=== PATIENT | female | born 1960 | race Caucasian/White ===

== ENCOUNTER 2017-05-13 01:25 | Emergency (ER) | payer MEDICARE, MEDICAID ==
--- NOTE | 2017-05-13 03:32 | ER Document Report ---
ED General - General Chief Complaint: Breathing Difficulty Stated Complaint: DIFFICULTY BREATHING Time Seen by Provider: 05/13/17 03:01 Notes: 57 years old female with a history of COPD, ran out of her Vicodin, and came today with a left sided chest pain between the shoulder blade. Denies any difficulty in using breathing wheezing, denies any precordial pain denies any left arm numbness tingling sensation. Denies any other constitutional symptoms. TRAVEL OUTSIDE OF THE [place] IN LAST 30 DAYS: No - Related Data Allergies/Adverse Reactions: tramadol HCl [From Ultram] Allergy (Mild, Verified 01/26/17 10:28) aspirin Allergy (Verified 03/18/16 18:54) diclofenac sodium [From Voltaren] Allergy (Verified 01/26/17 10:28) ketorolac [From Toradol] Allergy (Verified 03/19/16 03:39) penicillin G [Penicillin G] Allergy (Verified 01/26/17 10:28) Penicillins Allergy (Verified 03/18/16 18:54) Past Medical History - Social History Smoking Status: Current Every Day Smoker Chew tobacco use (# tins/day): No Frequency of alcohol use: None Drug Abuse: None Family History: CAD, COPD, Hypertension Patient has suicidal ideation: No Patient has homicidal ideation: No - Past Medical History Cardiac Medical History: Reports: Hx Congestive Heart Failure, Hx Hypertension Pulmonary Medical History: Reports: Hx COPD Neurological Medical History: Denies: Hx Seizures Renal/ Medical History: Reports: Hx Ovarian Cysts. Denies: Hx Peritoneal Dialysis GI Medical History: Reports: Hx Gastroesophageal Reflux Disease Musculoskeltal Medical History: Reports Hx Arthritis - RA Psychiatric Medical History: Reports: Hx Anxiety, Hx Bipolar Disorder, Hx Depression Past Surgical History: Reports: Hx Appendectomy, Hx Cholecystectomy, Hx Hysterectomy - Immunizations Immunizations up to date: Yes Hx Diphtheria, Pertussis, Tetanus Vaccination: Yes Review of Systems - Review of Systems Notes: REVIEW OF SYSTEMS: CONSTITUTIONAL : Denies fever, chills, or sweats. Denies recent illness. EENT: Denies eye, ear, throat, or mouth pain or symptoms. Denies nasal or sinus congestion or discharge. Denies throat, tongue, or mouth swelling or difficulty swallowing. CARDIOVASCULAR: Denies chest pain. Denies palpitations or racing or irregular heart beat. Denies ankle edema. RESPIRATORY: Denies cough, cold, or chest congestion. Denies shortness of breath, difficulty breathing, or wheezing. GASTROINTESTINAL: Denies abdominal pain or distention. Denies nausea, vomiting , or diarrhea. Denies blood in vomitus, stools, or per rectum. Denies black, tarry stools. Denies constipation. GENITOURINARY: Denies difficulty urinating, painful urination, burning, frequency, blood in urine, or discharge. FEMALE GENITOURINARY: Denies vaginal bleeding, heavy or abnormal periods, irregular periods. Denies vaginal discharge or odor. MUSCULOSKELETAL: Denies back or neck pain or stiffness. Denies joint pain or swelling. SKIN: Denies rash, lesions or sores. HEMATOLOGIC : Denies easy bruising or bleeding. LYMPHATIC: Denies swollen, enlarged glands. NEUROLOGICAL: Denies confusion or altered mental status. Denies passing out or loss of consciousness. Denies dizziness or lightheadedness. Denies headache. Denies weakness or paralysis or loss of use of either side. Denies problems with gait or speech. Denies sensory loss, numbness, or tingling. Denies seizures. PSYCHIATRIC: Denies anxiety or stress. Denies depression, suicidal ideation, or homicidal ideation. ALL OTHER SYSTEMS REVIEWED AND NEGATIVE. PHYSICAL EXAMINATION: GENERAL: Well-appearing, well-nourished and in no acute distress. HEAD: Atraumatic, normocephalic. EYES: Pupils equal round and reactive to light, extraocular movements intact, conjunctiva are normal. ENT: Nares patent, oropharynx clear without exudates. Moist mucous membranes. NECK: Normal range of motion, supple without lymphadenopathy LUNGS: Breath sounds clear to auscultation bilaterally and equal. No wheezes rales or rhonchi. Chest wall sharp tenderness noted along the trapezoid muscle-close to the insertion to the left scapula. HEART: Regular rate and rhythm without murmurs ABDOMEN: Soft, nontender, nondistended abdomen. No guarding, no rebound. No masses appreciated. Female : deferred Musculoskeletal: Normal range of motion, no pitting or edema. No cyanosis. NEUROLOGICAL: Cranial nerves grossly intact. Normal speech, normal gait. Normal sensory, motor exams PSYCH: Normal mood, normal affect. SKIN: Warm, Dry, normal turgor, no rashes or lesions noted. Dictation was performed using Dragon voice recognition software Physical Exam - Vital signs Vitals: Temp Pulse Resp BP Pulse Ox 98.3 F 70 18 117/59 L 94 05/13/17 01:44 05/13/17 01:44 05/13/17 01:44 05/13/17 01:44 05/13/17 01:44 Course - Re-evaluation Re-evalutation: 05/13/17 06:18 Patient's pulse oximeter drops while sleeping between 88 and 90, but when she is awake this over 93. - Vital Signs Vital signs: Temp Pulse Resp BP Pulse Ox 98.3 F 70 18 117/59 L 94 05/13/17 01:44 05/13/17 01:44 05/13/17 01:44 05/13/17 01:44 05/13/17 01:44 - Diagnostic Test Radiology reviewed: Reports reviewed - Normal chest x-ray Discharge - Discharge Clinical Impression: Chest wall pain COPD (chronic obstructive pulmonary disease) Qualifiers: COPD type: emphysema Emphysema type: unspecified Qualified Code(s): J43.9 - Emphysema, unspecified Condition: Fair Disposition: HOME, SELF-CARE Instructions: Chest Wall Pain ([facility]) Prescriptions: Hydrocodone/Acetaminophen [[place] 5-325 mg Tablet] 1 tab PO BID PRN #7 tablet PRN Reason: Referrals: KANNAN FRITZ MD [Primary Care Provider] - Follow up as needed
[2017-05-13] MEDS ORDERED: IPRATROPIUM/ALBUTEROL 0.5-2.5 MG/3 ML AMPUL NEB ONE (03:34)
[2017-05-13] MEDS ORDERED: HYDROCODONE/ACETAMINOPHEN 5-325 MG TABLET PO ONE (04:18)
--- NOTE | 2017-05-13 04:38 | RADIOLOGY REPORT (SQ) ---
EXAM DESCRIPTION: CHEST PA/LAT CLINICAL HISTORY: 57 years, Female, chest COMPARISON: 10.26.16 NUMBER OF VIEWS:2 FINDINGS: Mild emphysematous hyperinflation, clear parenchyma, normal cardiac silhouette, and right upper abdominal clips. Intact bony thorax. Stable. IMPRESSION: No acute cardiopulmonary findings. 2011 [employer]- All Rights Reserved
[2017-05-13 06:47] VITALS: BP 106/72
== END 2017-05-13 06:47 | disposition home or self-care (01) ==
LOC: ER 01:25
DX: J43.9 Emphysema, unspecified (principal); R07.89 Other chest pain; I10 Essential (primary) hypertension; F17.200 Nicotine dependence, unspecified, uncomplicated; Z88.5 Allergy status to narcotic agent; Z88.6 Allergy status to analgesic agent; Z88.0 Allergy status to penicillin; Z82.5 Family history of asthma and other chronic lower respiratory diseases
CPT/HCPCS: 94640; 99285; 71020; A9270 ×2; J7620

== ENCOUNTER 2017-08-22 15:44 | Emergency (ER) | payer MEDICARE, MEDICAID ==
--- NOTE | 2017-08-22 16:24 | ER Document Report ---
ED Medical Screen (RME) - General Chief Complaint: Possible Kidney Stone Stated Complaint: FLANK PAIN Time Seen by Provider: 08/22/17 16:16 Notes: 57-year-old female patient with past medical history of kidney stones, hypertension, complains of right-sided flank pain for 3 days with nausea without vomiting, fever and chills. Temperature to 100.[address] scan for stones was done on 03/18/2016 showed a very tiny right ureteral stone with mild hydro-. I have greeted and performed a rapid initial assessment of this patient. A comprehensive ED assessment and evaluation of the patient, analysis of test results and completion of the medical decision making process will be conducted by additional ED providers. TRAVEL OUTSIDE OF THE [place] IN LAST 30 DAYS: No - Related Data Allergies/Adverse Reactions: tramadol HCl [From Ultram] Allergy (Mild, Verified 08/22/17 15:45) aspirin Allergy (Verified 08/22/17 15:45) diclofenac sodium [From Voltaren] Allergy (Verified 08/22/17 15:45) ketorolac [From Toradol] Allergy (Verified 08/22/17 15:45) penicillin G [Penicillin G] Allergy (Verified 08/22/17 15:45) Penicillins Allergy (Verified 08/22/17 15:45) Past Medical History - Social History Chew tobacco use (# tins/day): No Frequency of alcohol use: None Drug Abuse: None - Past Medical History Cardiac Medical History: Reports: Hx Congestive Heart Failure, Hx Hypertension Pulmonary Medical History: Reports: Hx COPD Neurological Medical History: Denies: Hx Seizures Renal/ Medical History: Reports: Hx Ovarian Cysts. Denies: Hx Peritoneal Dialysis GI Medical History: Reports: Hx Gastroesophageal Reflux Disease Musculoskeltal Medical History: Reports Hx Arthritis - RA Psychiatric Medical History: Reports: Hx Anxiety, Hx Bipolar Disorder, Hx Depression Past Surgical History: Reports: Hx Appendectomy, Hx Cholecystectomy, Hx Hysterectomy - Immunizations Immunizations up to date: Yes Hx Diphtheria, Pertussis, Tetanus Vaccination: Yes Physical Exam - Vital signs Vitals: Temp Pulse Resp BP Pulse Ox 97.8 F 64 14 113/67 90 L 08/22/17 15:54 08/22/17 15:54 08/22/17 15:54 08/22/17 15:54 08/22/17 15:54 Course - Vital Signs Vital signs: Temp Pulse Resp BP Pulse Ox 97.8 F 64 14 113/67 90 L 08/22/17 15:54 08/22/17 15:54 08/22/17 15:54 08/22/17 15:54 08/22/17 15:54
[2017-08-22 16:56] LABS: APPEARANCE,URINE CLEAR; BILIRUBIN,URINE NEGATIVE (NEGATIVE); COLOR,URINE STRAW; GLUCOSE, URINE NEGATIVE (NEGATIVE); KETONES,URINE NEGATIVE (NEGATIVE); URINE SPECIFIC GRAVITY 1.012
[2017-08-22 16:57] LABS: LEUKOCYTE ESTERASE,URINE NEGATIVE (NEGATIVE); NITRITE,URINE NEGATIVE (NEGATIVE); PROTEIN,URINE NEGATIVE (NEGATIVE); UROBILINOGEN,URINE NEGATIVE mg/dL (<2.0)
[2017-08-22] MEDS ORDERED: OXYCODONE-ACETAMINOPHEN 5-325 MG TABLET PO ONE (17:23)
--- NOTE | 2017-08-22 18:00 | ER Document Report ---
ED General - General Chief Complaint: Possible Kidney Stone Stated Complaint: FLANK PAIN Time Seen by Provider: 08/22/17 16:16 Mode of Arrival: Ambulatory Information source: Patient Notes: 57-year-old female history of appendectomy to previous kidney stones presents with complaint of right flank pain of 3 day duration. Patient denies any fevers or chills admits nausea vomiting, patient notes the pain has worsened in the right lower quadrant and feels a stone stuck TRAVEL OUTSIDE OF THE [place] IN LAST 30 DAYS: No - HPI Onset: Other Onset/Duration: Persistent Quality of pain: Sharp Severity: Mild Pain Level: 1 Associated symptoms: Nausea, Vomiting, Other Exacerbated by: Denies Relieved by: Denies Similar symptoms previously: Yes Recently seen / treated by doctor: No - Related Data Allergies/Adverse Reactions: tramadol HCl [From Ultram] Allergy (Mild, Verified 08/22/17 15:45) aspirin Allergy (Verified 08/22/17 15:45) diclofenac sodium [From Voltaren] Allergy (Verified 08/22/17 15:45) ketorolac [From Toradol] Allergy (Verified 08/22/17 15:45) penicillin G [Penicillin G] Allergy (Verified 08/22/17 15:45) Penicillins Allergy (Verified 08/22/17 15:45) Past Medical History - Social History Smoking Status: Current Every Day Smoker Cigarette use (# per day): Yes Chew tobacco use (# tins/day): No Smoking Education Provided: No Frequency of alcohol use: None Drug Abuse: None Family History: CAD, COPD, Hypertension Patient has suicidal ideation: No Patient has homicidal ideation: No - Past Medical History Cardiac Medical History: Reports: Hx Congestive Heart Failure, Hx Hypertension Pulmonary Medical History: Reports: Hx COPD Neurological Medical History: Denies: Hx Seizures Renal/ Medical History: Reports: Hx Ovarian Cysts. Denies: Hx Peritoneal Dialysis GI Medical History: Reports: Hx Gastroesophageal Reflux Disease Musculoskeltal Medical History: Reports Hx Arthritis - RA Psychiatric Medical History: Reports: Hx Anxiety, Hx Bipolar Disorder, Hx Depression Past Surgical History: Reports: Hx Appendectomy, Hx Cholecystectomy, Hx Hysterectomy - Immunizations Immunizations up to date: Yes Hx Diphtheria, Pertussis, Tetanus Vaccination: Yes Review of Systems - Review of Systems Notes: REVIEW OF SYSTEMS: CONSTITUTIONAL : Denies fever, chills, or sweats. Denies recent illness. EENT: Denies eye, ear, throat, or mouth pain or symptoms. Denies nasal or sinus congestion or discharge. Denies throat, tongue, or mouth swelling or difficulty swallowing. CARDIOVASCULAR: Denies chest pain. Denies palpitations or racing or irregular heart beat. Denies ankle edema. RESPIRATORY: Denies cough, cold, or chest congestion. Denies shortness of breath, difficulty breathing, or wheezing. GASTROINTESTINAL: Admits to right flank pain right lower quadrant abdominal pain nausea vomiting GENITOURINARY: Denies difficulty urinating, painful urination, burning, frequency, blood in urine, or discharge. FEMALE GENITOURINARY: Denies vaginal bleeding, heavy or abnormal periods, irregular periods. Denies vaginal discharge or odor. MUSCULOSKELETAL: Denies back or neck pain or stiffness. Denies joint pain or swelling. SKIN: Denies rash, lesions or sores. HEMATOLOGIC : Denies easy bruising or bleeding. LYMPHATIC: Denies swollen, enlarged glands. NEUROLOGICAL: Denies confusion or altered mental status. Denies passing out or loss of consciousness. Denies dizziness or lightheadedness. Denies headache. Denies weakness or paralysis or loss of use of either side. Denies problems with gait or speech. Denies sensory loss, numbness, or tingling. Denies seizures. PSYCHIATRIC: Denies anxiety or stress. Denies depression, suicidal ideation, or homicidal ideation. ALL OTHER SYSTEMS REVIEWED AND NEGATIVE. PHYSICAL EXAMINATION: GENERAL: Well-appearing, well-nourished and in no acute distress. HEAD: Atraumatic, normocephalic. EYES: Pupils equal round and reactive to light, extraocular movements intact, conjunctiva are normal. ENT: Nares patent, oropharynx clear without exudates. Moist mucous membranes. NECK: Normal range of motion, supple without lymphadenopathy LUNGS: Breath sounds clear to auscultation bilaterally and equal. No wheezes rales or rhonchi. HEART: Regular rate and rhythm without murmurs ABDOMEN: Soft, minimally tender right lower quadrant no rebound no guarding Female : deferred Musculoskeletal: Normal range of motion, no pitting or edema. No cyanosis. NEUROLOGICAL: Cranial nerves grossly intact. Normal speech, normal gait. Normal sensory, motor exams PSYCH: Normal mood, normal affect. SKIN: Warm, Dry, normal turgor, no rashes or lesions noted. Dictation was performed using Dragon voice recognition software Physical Exam - Vital signs Vitals: Temp Pulse Resp BP Pulse Ox 97.8 F 64 14 113/67 90 L 08/22/17 15:54 08/22/17 15:54 08/22/17 15:54 08/22/17 15:54 08/22/17 15:54 Course - Re-evaluation Re-evalutation: 08/22/17 17:59 Patient's presentation is most consistent with a kidney stone urinalysis notes no infection small blood was noted 08/22/17 18:00 08/22/17 18:40 CT noted no significant abnormality, patient will be treated for pains otherwise stable well-appearing of time of discharge Patient's urinalysis did note blood otherwise looks well After performing a Medical Screening Examination, I estimate there is LOW risk for ACUTE APPENDICITIS, BOWEL OBSTRUCTION, ACUTE CHOLECYSTITIS, PERFORATED DIVERTICULITIS, INCARCERATED HERNIA, PANCREATITIS, PELVIC INFLAMMATORY DISEASE, PERFORATED ULCER, ECTOPIC , or TUBO-OVARIAN ABSCESS, thus I consider the discharge disposition reasonable. Also, there is no evidence or peritonitis , sepsis, or toxicity. I have reevaluated this patient multiple times and no significant life threatening changes are noted. The patient and I have discussed the diagnosis and risks, and we agree with discharging home with close follow-up with the understanding that symptoms and presentations can change. We also discussed returning to the Emergency Department immediately if new or worsening symptoms occur. We have discussed the symptoms which are most concerning (e.g., bloody stool, fever, changing or worsening pain, vomiting) that necessitate immediate return. - Vital Signs Vital signs: Temp Pulse Resp BP Pulse Ox 97.8 F 64 14 113/67 90 L 08/22/17 15:54 08/22/17 15:54 08/22/17 15:54 08/22/17 15:54 08/22/17 15:54 - Laboratory Laboratory results interpreted by me: 08/22/17 16:10 Urine Blood SMALL H - Diagnostic Test Radiology reviewed: Image reviewed - no acute abnormality , report given to patient, Reports reviewed Discharge - Discharge Clinical Impression: Abdominal pain Qualifiers: Abdominal location: right lower quadrant Qualified Code(s): R10.31 - Right lower quadrant pain Hematuria Qualifiers: Hematuria type: unspecified type Qualified Code(s): R31.9 - Hematuria, unspecified Condition: Stable Disposition: HOME, SELF-CARE Instructions: Abdominal Pain ([facility]) Prescriptions: Hydrocodone/Acetaminophen [Shushan 5-325 mg Tablet] 1 tab PO Q6 #6 tablet Referrals: DEJA FERRO PA [Primary Care Provider] - Follow up as needed
--- NOTE | 2017-08-22 18:16 | RADIOLOGY REPORT (SQ) ---
EXAM DESCRIPTION: CT LTD RENAL STONE PROTOCOL ON COMPLETED DATE/TIME: 08/22/2017 6:06 pm REASON FOR STUDY: kidney stone , flank pain hematuria COMPARISON: 03/18/2016. TECHNIQUE: CT scan of the abdomen and pelvis performed without intravenous or oral contrast. Images reviewed with lung, soft tissue, and bone windows. Reconstructed coronal and sagittal MPR images revi ewed. All images stored on PACS. All CT scanners at this facility use dose modulation, iterative reconstruction, and/or weight based d osing when appropriate to reduce radiation dose to as low as reasonably achievable (ALARA). [facility]: Dose Right [facility]: CareDose [facility]: Dose Right [facility]: Teradose 4D [facility]: [employer] RADIATION DOSE: mGy. LIMITATIONS: None. FINDINGS: LOWER CHEST: No significant findings. No nodules or infiltrates. NON-CONTRASTED LIVER, SPLEEN, ADRENALS: Evaluation limited by lack of IV contrast. No identified sign ificant masses. PANCREAS: No masses. No peripancreatic inflammatory changes. GALLBLADDER: Surgically absent. RIGHT KIDNEY AND URETER: No suspicious masses. Assessment limited by lack of IV contrast. No signif icant calcifications. No hydronephrosis or hydroureter. LEFT KIDNEY AND URETER: Stable chronic atrophy. No suspicious masses. Assessment limited by lack of IV contrast. No significant calcifications. No hydronephrosis or hydroureter. AORTA AND RETROPERITONEUM: No aneurysm. No retroperitoneal masses or adenopathy. BOWEL AND PERITONEAL CAVITY: No obvious masses or inflammatory changes. No free fluid. APPENDIX: Surgically absent. PELVIS, BLADDER, AND ABDOMINAL WALL:No abnormal masses. No free fluid. Bladder normal. BONES: No significant findings. OTHER: No other significant finding. IMPRESSION: STABLE CHRONIC ATROPHY OF THE LEFT KIDNEY. NO SIGNIFICANT OR ACUTE PROCESS IN THE ABDOM EN OR PELVIS. NO RENAL OR URETERAL CALCULI OR OBSTRUCTION. COMMENT: Quality ID # [id number]: Final reports with documentation of one or more dose reduction techniques (e.g., Automated exposure control, adjustment of the mA and/or kV according to patient size, use of iterative reconstruction technique) TECHNICAL DOCUMENTATION: JOB ID: [id number] [employer]- All Rights Reserved Reading location - IP/workstation name: EMERGENCY MEDICAL SERVICE MANAGERMindyDU[facility]
[2017-08-22 19:23] VITALS: BP 148/72
== END 2017-08-22 19:22 | disposition home or self-care (01) ==
LOC: ER 15:44
DX: R11.2 Nausea with vomiting, unspecified (principal); R31.9 Hematuria, unspecified; R10.31 Right lower quadrant pain; F17.210 Nicotine dependence, cigarettes, uncomplicated; I50.9 Heart failure, unspecified; I11.0 Hypertensive heart disease with heart failure; J44.9 Chronic obstructive pulmonary disease, unspecified; Z87.442 Personal history of urinary calculi; Z88.6 Allergy status to analgesic agent; Z88.0 Allergy status to penicillin; Z90.710 Acquired absence of both cervix and uterus; Z90.49 Acquired absence of other specified parts of digestive tract
CPT/HCPCS: 99284; 81001; 76380; A9270

== ENCOUNTER 2017-08-31 16:55 | Emergency (ER) | payer MEDICARE, MEDICAID ==
--- NOTE | 2017-08-31 18:29 | ER Document Report ---
ED Medical Screen (RME) - General Chief Complaint: Abdominal Pain Stated Complaint: ABDOMINAL/BACK PAIN Time Seen by Provider: 08/31/17 18:19 Notes: This 57-year-old female patient comes emergency room complaining of pain in the right flank radiating around to the right lower abdomen. There is some nauseousness involved with this. She was seen here on 08/22/2017 with similar symptoms, had a negative urinalysis and a negative CT scan of the abdomen and pelvis. She does have a past history of kidney stones. She states the pain is gotten worse since then. I have greeted and performed a rapid initial assessment of this patient. A comprehensive ED assessment and evaluation of the patient, analysis of test results and completion of the medical decision making process will be conducted by additional ED providers. TRAVEL OUTSIDE OF THE [place] IN LAST 30 DAYS: No - Related Data Allergies/Adverse Reactions: tramadol HCl [From Ultram] Allergy (Mild, Verified 08/31/17 16:56) aspirin Allergy (Verified 08/31/17 16:56) diclofenac sodium [From Voltaren] Allergy (Verified 08/31/17 16:56) ketorolac [From Toradol] Allergy (Verified 08/31/17 16:56) penicillin G [Penicillin G] Allergy (Verified 08/31/17 16:56) Penicillins Allergy (Verified 08/31/17 16:56) Past Medical History - Past Medical History Cardiac Medical History: Reports: Hx Congestive Heart Failure, Hx Hypertension Pulmonary Medical History: Reports: Hx COPD Neurological Medical History: Denies: Hx Seizures Renal/ Medical History: Reports: Hx Ovarian Cysts. Denies: Hx Peritoneal Dialysis GI Medical History: Reports: Hx Gastroesophageal Reflux Disease Musculoskeltal Medical History: Reports Hx Arthritis - RA Psychiatric Medical History: Reports: Hx Anxiety, Hx Bipolar Disorder, Hx Depression Past Surgical History: Reports: Hx Appendectomy, Hx Cholecystectomy, Hx Hysterectomy - Immunizations Immunizations up to date: Yes Hx Diphtheria, Pertussis, Tetanus Vaccination: Yes Physical Exam - Vital signs Vitals: Temp Pulse Resp BP Pulse Ox 97.9 F 71 16 130/69 H 90 L 08/31/17 17:27 08/31/17 17:27 08/31/17 17:27 08/31/17 17:27 08/31/17 17:27 Course - Vital Signs Vital signs: Temp Pulse Resp BP Pulse Ox 97.9 F 71 16 130/69 H 90 L 08/31/17 17:27 08/31/17 17:27 08/31/17 17:27 08/31/17 17:27 08/31/17 17:27 Doctor's Discharge - Discharge Referrals: DEJA FERRO PA [Primary Care Provider] - Follow up as needed
[2017-08-31 18:49] LABS: ABSOLUTE BASOPHILS # (AUTO) 0.1 10^3/uL (0.0-0.2); ABSOLUTE EOSINOPHILS # (AUTO) 0.2 10^3/uL (0.0-0.6); ABSOLUTE MONOCYTES (AUTO) 0.8 10^3/uL (0.1-1.4); ABSOLUTE NEUT (AUTO) 4.8 10^3/uL (1.7-8.2); BASOPHILS % (AUTO) 0.6 % (0-2); EOSINOPHILS % (AUTO) 1.9 % (0-6); HEMATOCRIT 44.9 % (36.0-47.0); HEMOGLOBIN 14.7 g/dL (12.0-15.5); MEAN CORPUSCULAR HEMOGLOBIN 30.3 pg (27.0-33.4); MEAN CORPUSCULAR HGB CONC 32.8 g/dL (32.0-36.0); MEAN CORPUSCULAR VOLUME 92 fl (80-97); MONOCYTES % (AUTO) 7.2 % (3-13); PLATELET COUNT 249 10^3/uL (150-450); RED BLOOD COUNT 4.86 10^6/uL (3.72-5.28); SEGMENTED NEUTROPHILS % (AUTO) 44.3 % (42-78); TOTAL CELLS COUNTED % (AUTO) 100 %; WHITE BLOOD COUNT 10.8 10^3/uL (4.0-10.5)
--- NOTE | 2017-08-31 19:01 | ER Document Report ---
ED GI/ - General Chief Complaint: Abdominal Pain Stated Complaint: ABDOMINAL/BACK PAIN Time Seen by Provider: 08/31/17 18:19 Notes: History of complain-57 years old female presents today with right flank pain radiating to the front on and off since the first of this month. She was seen here and evaluated, she states that it has been improved. Sometimes it wakes her from bed. Sometimes the pain radiated down the leg. She was constipated before, but recently had brown loose stools. She is under pain management taking pain medications. For lower back pain. Denies any constitutional symptoms. Denies any nausea vomiting. But had dysuria and frequency. REVIEW OF SYSTEMS: CONSTITUTIONAL : Denies fever, chills, or sweats. Denies recent illness. EENT: Denies eye, ear, throat, or mouth pain or symptoms. Denies nasal or sinus congestion or discharge. Denies throat, tongue, or mouth swelling or difficulty swallowing. CARDIOVASCULAR: Denies chest pain. Denies palpitations or racing or irregular heart beat. Denies ankle edema. RESPIRATORY: Denies cough, cold, or chest congestion. Denies shortness of breath, difficulty breathing, or wheezing. GASTROINTESTINAL: Denies abdominal pain or distention. Denies nausea, vomiting , or diarrhea. Denies blood in vomitus, stools, or per rectum. Denies black, tarry stools. Denies constipation. GENITOURINARY: Denies difficulty urinating, painful urination, burning, frequency, blood in urine, or discharge. FEMALE GENITOURINARY: Denies vaginal bleeding, heavy or abnormal periods, irregular periods. Denies vaginal discharge or odor. MUSCULOSKELETAL: Denies back or neck pain or stiffness. Denies joint pain or swelling. SKIN: Denies rash, lesions or sores. HEMATOLOGIC : Denies easy bruising or bleeding. LYMPHATIC: Denies swollen, enlarged glands. NEUROLOGICAL: Denies confusion or altered mental status. Denies passing out or loss of consciousness. Denies dizziness or lightheadedness. Denies headache. Denies weakness or paralysis or loss of use of either side. Denies problems with gait or speech. Denies sensory loss, numbness, or tingling. Denies seizures. PSYCHIATRIC: Denies anxiety or stress. Denies depression, suicidal ideation, or homicidal ideation. ALL OTHER SYSTEMS REVIEWED AND NEGATIVE. PHYSICAL EXAMINATION: GENERAL: Well-appearing, well-nourished and in no acute distress. HEAD: Atraumatic, normocephalic. EYES: Pupils equal round and reactive to light, extraocular movements intact, conjunctiva are normal. ENT: Nares patent, oropharynx clear without exudates. Moist mucous membranes. NECK: Normal range of motion, supple without lymphadenopathy LUNGS: Breath sounds clear to auscultation bilaterally and equal. No wheezes rales or rhonchi. HEART: Regular rate and rhythm without murmurs ABDOMEN: Soft, sharp tenderness noted in the right upper quadrant and left lower quadrant and periumbilical region, questionable pulsatile abdominal aorta. No bruit., nondistended abdomen. No guarding, no rebound. No masses appreciated. Female : deferred Musculoskeletal: Normal range of motion, no pitting or edema. No cyanosis. NEUROLOGICAL: Cranial nerves grossly intact. Normal speech, normal gait. Normal sensory, motor exams PSYCH: Normal mood, normal affect. SKIN: Warm, Dry, normal turgor, no rashes or lesions noted. Dictation was performed using [employer] voice recognition software TRAVEL OUTSIDE OF THE [place] IN LAST 30 DAYS: No - HPI Patient complains to provider of: Abdominal pain Onset: Other Timing/Duration: Intermittent Quality of pain: Cramping Severity in ED: Moderate Pain Level: 3 Context: denies: Bad food, Lifting, Out of the country travel, , Recent trauma, Other Location: RUQ, RLQ. No: Chest pain, Epigastric, LUQ, LLQ, Left flank, Right flank, Low back, Suprapubic, Pelvis, Vaginal, Vulvar, Rectal, Other Vaginal bleeding (Compared to normal period): denies: None, Spotting, [employer], Similar, Heavier, Severe, Bright red, Dark brown, Passing clots, Passing tissue Menstrual period history: denies: Abnormal, Irregular, Missed, , S/P menopausal, Post-menopausal Sexual history: denies: Active, Inactive, New partner, Multiple partners, Unprotected intercourse, Rectal penetration, STD exposure, control patch, control pills, Condoms, Depo, IUD Associated symptoms: denies: None, Blood in emesis, Blood in stool, Chest pain, Chills, Coffee ground emesis, Constipation, Diarrhea, Dizzy, Dysuria, Fever, Hard stool, Hematuria, Hurts to breath, Inguinal mass, Lightheaded, Loss of appetite, Nausea, Odor, Painful intercourse, Radiates to back, Radiates to chest , Radiates to vagina, Radiates to shoulder, Shortness of breath, Sweaty, Syncope , Urinary hesitancy, Urinary frequency, Urinary retention, Urinary urgency, Vaginal discharge, Vomiting, Other Exacerbated by: denies: Denies, Supine, Sitting, Standing, Movement, Walking, Coughing, Deep breathing, Food, Other - Related Data Allergies/Adverse Reactions: tramadol HCl [From Ultram] Allergy (Mild, Verified 08/31/17 16:56) aspirin Allergy (Verified 08/31/17 16:56) diclofenac sodium [From Voltaren] Allergy (Verified 08/31/17 16:56) ketorolac [From Toradol] Allergy (Verified 08/31/17 16:56) penicillin G [Penicillin G] Allergy (Verified 08/31/17 16:56) Penicillins Allergy (Verified 08/31/17 16:56) Past Medical History - Social History Smoking Status: Current Every Day Smoker Chew tobacco use (# tins/day): No Frequency of alcohol use: None Drug Abuse: None Family History: CAD, COPD, Hypertension Patient has suicidal ideation: No Patient has homicidal ideation: No - Past Medical History Cardiac Medical History: Reports: Hx Congestive Heart Failure, Hx Hypertension Pulmonary Medical History: Reports: Hx COPD Neurological Medical History: Denies: Hx Seizures Renal/ Medical History: Reports: Hx Ovarian Cysts. Denies: Hx Peritoneal Dialysis GI Medical History: Reports: Hx Gastroesophageal Reflux Disease Musculoskeltal Medical History: Reports Hx Arthritis - RA Psychiatric Medical History: Reports: Hx Anxiety, Hx Bipolar Disorder, Hx Depression Past Surgical History: Reports: Hx Appendectomy, Hx Cholecystectomy, Hx Hysterectomy - Immunizations Immunizations up to date: Yes Hx Diphtheria, Pertussis, Tetanus Vaccination: Yes Review of Systems - Review of Systems Notes: With a history of complain Physical Exam - Vital signs Vitals: Temp Pulse Resp BP Pulse Ox 97.9 F 71 16 130/69 H 90 L 08/31/17 17:27 08/31/17 17:27 08/31/17 17:27 08/31/17 17:27 08/31/17 17:27 Course - Re-evaluation Re-evalutation: 08/31/17 23:44 Patient was given fentanyl IM. - Vital Signs Vital signs: Temp Pulse Resp BP Pulse Ox 97.9 F 71 16 130/69 H 90 L 08/31/17 17:27 08/31/17 17:27 08/31/17 17:27 08/31/17 17:27 08/31/17 17:27 - Laboratory Result Diagrams: 08/31/17 18:35 08/31/17 18:35 Laboratory results interpreted by me: 08/31/17 08/31/17 18:35 18:35 WBC 10.8 H RDW 15.0 H Lymphocytes % 46.0 H Absolute Lymphocytes 5.0 H Sodium 132.0 L Chloride 93 L Est GFR ( Amer) 54 L Est GFR (Non-Af Amer) 44 L Glucose 72 L - Diagnostic Test Radiology reviewed: Reports reviewed - CT of the abdomen and pelvis was reviewed. No acute finding. Discharge - Discharge Clinical Impression: Hyponatremia, Dehydration Abdominal pain Qualifiers: Abdominal location: right upper quadrant Qualified Code(s): R10.11 - Right upper quadrant pain Condition: Fair Disposition: HOME, SELF-CARE Instructions: Abdominal Pain ([facility]) Additional Instructions: Chronic abdominal pain, please follow-up with your primary care physician within 2-3 days. Referrals: DEJA FERRO PA [Primary Care Provider] - Follow up as needed
[2017-08-31 19:06] LABS: ALANINE AMINOTRANSFERASE 24 U/L (9-52); ALBUMIN 4.4 g/dL (3.5-5.0); ALKALINE PHOSPHATASE 87 U/L (38-126); ANION GAP 9 (5-19); ASPARTATE AMINO TRANSFERASE 23 U/L (14-36); BILIRUBIN,DIRECT 0.3 mg/dL (0.0-0.4); BILIRUBIN,TOTAL 0.3 mg/dL (0.2-1.3); BLOOD UREA NITROGEN 14 mg/dL (7-20); CALCIUM 9.5 mg/dL (8.4-10.2); CARBON DIOXIDE 30 mmol/L (22-30); CHLORIDE 93 mmol/L (98-107); GLUCOSE 72 mg/dL (75-110); POTASSIUM 4.5 mmol/L (3.6-5.0); TOTAL PROTEIN 7.6 g/dL (6.3-8.2)
[2017-08-31 19:26] LABS: APPEARANCE,URINE CLEAR; BILIRUBIN,URINE NEGATIVE (NEGATIVE); COLOR,URINE STRAW; GLUCOSE, URINE NEGATIVE (NEGATIVE); KETONES,URINE NEGATIVE (NEGATIVE); LEUKOCYTE ESTERASE,URINE NEGATIVE (NEGATIVE); NITRITE,URINE NEGATIVE (NEGATIVE); PROTEIN,URINE NEGATIVE (NEGATIVE); URINE SPECIFIC GRAVITY 1.004; UROBILINOGEN,URINE NEGATIVE mg/dL (<2.0)
[2017-08-31] MEDS ORDERED: FENTANYL CITRATE INJ/PF 100 MCG/2 ML AMPUL IV ONE (21:19)
--- NOTE | 2017-08-31 22:05 | RADIOLOGY REPORT (SQ) ---
EXAM DESCRIPTION: CT ABD/PELVIS WITH IV ONLY COMPLETED DATE/TIME: 08/31/2017 9:38 pm REASON FOR STUDY: Abdominal pain/pulsatile abdominal aorta COMPARISON: 03/18/2016. TECHNIQUE: CT scan of the abdomen and pelvis performed using helical scanning technique with dynamic intravenous contrast injection. No oral contrast. Images reviewed with lung, soft tissue, and bone windows. Reconstructed coronal and sagittal MPR images reviewed. Delayed images for evaluation of the urinary system also acquired. All images stored on PACS. All CT scanners at this facility use dose modulation, iterative reconstruction, and/or weight based d osing when appropriate to reduce radiation dose to as low as reasonably achievable (ALARA). [facility]: Dose Right [facility]: CareDose [facility]: Dose Right [facility]: Teradose 4D [facility]: Shopo CONTRAST TYPE AND DOSE: contrast/concentration: Isovue 370.00 mg/ml; Total Contrast Delivered: 61.0 ml; Total Saline Delivered: 40.0 ml RENAL FUNCTION: BUN 14 creatinine 1.24. RADIATION DOSE: CT Rad equipment meets quality standard of care and radiation dose reduction techniq ues were employed. CTDIvol: 4.8 mGy. DLP: 460 mGy-cm.. LIMITATIONS: None. FINDINGS: LOWER CHEST: No significant findings. No nodules or infiltrates. LIVER: Normal size. No masses. No dilated ducts. SPLEEN: Normal size. No focal lesions. PANCREAS: No masses. No significant calcifications. No adjacent inflammation or peripancreatic fluid collections. Pancreatic duct not dilated. GALLBLADDER: Surgically absent. ADRENAL GLANDS: No significant masses or asymmetry. RIGHT KIDNEY AND URETER: No solid masses. No significant calcifications. No hydronephrosis or hyd roureter. LEFT KIDNEY AND URETER: Chronic atrophy. No solid masses. No significant calcifications. No hydr onephrosis or hydroureter. AORTA AND VESSELS: Diffuse atherosclerosis. No aneurysm. No dissection. Renal arteries, SMA, celiac without stenosis. RETROPERITONEUM: No retroperitoneal adenopathy, hemorrhage or masses. BOWEL AND PERITONEAL CAVITY: No masses or inflammatory changes. No free fluid or peritoneal masses. APPENDIX: Surgically absent. PELVIS: No mass. No free fluid. Normal bladder. ABDOMINAL WALL: No masses. No hernias. BONES: No significant or acute findings. OTHER: No other significant finding. IMPRESSION: CHRONIC ATROPHY OF THE LEFT KIDNEY. DIFFUSE ATHEROSCLEROSIS OF THE AORTA WITH NO AORTIC ANEURYSM. NO OTHER SIGNIFICANT OR ACUTE FINDING IN THE ABDOMEN OR PELVIS ON CT SCAN WITH IV CONTRAS T. TECHNICAL DOCUMENTATION: JOB ID: [id number] Quality ID # [id number]: Final reports with documentation of one or more dose reduction techniques (e.g., Au tomated exposure control, adjustment of the mA and/or kV according to patient size, use of iterative reconstruction technique) 2010 [employer]- All Rights Reserved Reading location - IP/workstation name: [email or web address]
[2017-09-01 00:35] VITALS: BP 100/52
== END 2017-09-01 00:33 | disposition home or self-care (01) ==
LOC: ER 16:55
DX: E87.1 Hypo-osmolality and hyponatremia (principal); E86.0 Dehydration; R10.11 Right upper quadrant pain; J44.9 Chronic obstructive pulmonary disease, unspecified; I50.9 Heart failure, unspecified; I11.0 Hypertensive heart disease with heart failure; F17.200 Nicotine dependence, unspecified, uncomplicated; Z90.49 Acquired absence of other specified parts of digestive tract; Z90.710 Acquired absence of both cervix and uterus
CPT/HCPCS: 99284; 96374; 36415; 83690; 85025; 80053; 81001; 74177; J3010

== ENCOUNTER 2017-09-17 16:10 | Emergency (ER) | payer MEDICARE, MEDICAID ==
[2017-09-17] MEDS ORDERED: LIDOCAINE 5% (700 MG) TRANSDERMAL ADH..PATCH TP ONE (17:18)
[2017-09-17] MEDS ORDERED: DEXAMETHASONE SOD PHOS INJ 10 MG/1 ML VIAL IM ONE (17:18)
[2017-09-17] MEDS ORDERED: OXYCODONE-ACETAMINOPHEN 5-325 MG TABLET PO ONE (17:18)
[2017-09-17] MEDS ORDERED: METHYLPREDNISOLONE INJ 125 MG/2 ML SDV IM ONE (17:20)
--- NOTE | 2017-09-17 17:21 | ER Document Report ---
HPI - HPI Pain Level: 5 Context: Patient is a 57-year-old female who presents emergency department the chief complaint of right sciatica. Patient states that she has a history of degenerative disc disease and follows with a new pain management clinic in area. Patient states that she has been utilizing [id number] Motrin and heat packs as well as muscle relaxers that she received from her primary care office. She denies any urinary/stool incontinence, saddle anesthesia. Patient states that her back pain is normally restricted to her back but now associated in her right exterior leg. She denies any numbness, tingling in her feet. Has been able to ambulate. Has not followed up with her primary care or pain management clinic regarding this issue. - REPRODUCTIVE Reproductive: DENIES: : - MUSCULOSKELETAL Musculoskeletal: REPORTS: Extremity pain Past Medical History - Social History Smoking Status: Current Every Day Smoker Chew tobacco use (# tins/day): No Frequency of alcohol use: None Drug Abuse: None Family History: CAD, COPD, Hypertension Patient has suicidal ideation: No Patient has homicidal ideation: No - Past Medical History Cardiac Medical History: Reports: Hx Congestive Heart Failure, Hx Hypertension Pulmonary Medical History: Reports: Hx COPD Neurological Medical History: Denies: Hx Seizures Renal/ Medical History: Reports: Hx Ovarian Cysts. Denies: Hx Peritoneal Dialysis GI Medical History: Reports: Hx Gastroesophageal Reflux Disease Musculoskeltal Medical History: Reports Hx Arthritis - RA Psychiatric Medical History: Reports: Hx Anxiety, Hx Bipolar Disorder, Hx Depression Past Surgical History: Reports: Hx Appendectomy, Hx Cholecystectomy, Hx Hysterectomy, Hx Orthopedic Surgery - Rt knee and hand - Immunizations Immunizations up to date: Yes Hx Diphtheria, Pertussis, Tetanus Vaccination: Yes Vertical Provider Document - CONSTITUTIONAL Agree With Documented VS: Yes Notes: PHYSICAL EXAM GENERAL: Alert, interacts well. HEAD: Normocephalic, atraumatic. EYES: Pupils equal, round, and reactive to light. Extraocular movements intact. NECK: Full range of motion. Supple. Trachea midline. EXTREMITIES: Moves all 4 extremities spontaneously. No edema, radial and dorsalis pedis pulses 2/4 bilaterally. No cyanosis. Back: Right paralumbar muscular tenderness with pain reproducible palpation. No spinous process deformities, step-offs or tenderness. 5 out of 5 strength both distally and proximally bilateral lower extremities. 2+ patellar reflexes bilaterally. Sensation grossly intact in the bilateral lower extremities. Patient is able to ambulate without difficulty. NEUROLOGICAL: Alert and oriented x4. Normal speech. PSYCH: Normal affect, normal mood. SKIN: Warm, dry, normal turgor. No rashes or lesions noted. - INFECTION CONTROL TRAVEL OUTSIDE OF THE [place] IN LAST 30 DAYS: No Course - Re-evaluation Re-evalutation: 09/17/17 17:19 Patient is a 57-year-old female with a history of chronic low back pain who presents with low back pain without signs of spinal cord compression, cauda equina syndrome, infection, aneurysm, or other serious etiology. The patient is neurologically intact. Given the extremely low risk of these diagnoses further testing and evaluation for these possibilities does not appear to be indicated at this time. The patient has been instructed to return if the symptoms worsen or change in any way. - Vital Signs Vital signs: Temp Pulse Resp BP Pulse Ox 97.8 F 72 22 H 143/61 H 97 09/17/17 16:17 09/17/17 16:17 09/17/17 16:17 09/17/17 16:17 09/17/17 16:17 Discharge - Discharge Clinical Impression: Back pain Qualifiers: Back pain location: low back pain Chronicity: chronic Back pain laterality: right Sciatica presence: with sciatica Sciatica laterality: sciatica of right side Qualified Code(s): M54.41 - Lumbago with sciatica, right side Condition: Good Disposition: HOME, SELF-CARE Additional Instructions: LOW BACK PAIN: Three out of every four people will have an episode of disabling back pain during their lifetime. Most commonly the pain is due to straining of the muscles and ligaments in the low back. Usual treatment includes: (1) Rest on a firm surface. Avoid lying on your stomach. (2) Ice pack the painful area. After a few days, gentle heat may be used intermittently to relax the area, or ice packs can be continued. (3) Medication may be needed -- muscle relaxers and antiinflammatory medicines are commonly used. (4) As the back improves, exercises are prescribed to strengthen the back and abdominal muscles. Your doctor will advise you on the proper care for your back at each stage in your recovery. You may be better in a few days -- or healing may take several weeks. If new symptoms of a "herniated disc" (radiation of pain, numbness, or tingling down the back of the leg or weakness in the leg) occur, you should be re-examined. Further testing may be necessary. FOLLOW-UP CARE: If you have been referred to a physician for follow-up care, call the physician s office for an appointment as you were instructed or within the next two days. If you experience worsening or a significant change in your symptoms, notify the physician immediately or return to the Emergency Department at any time for re-evaluation. Prescriptions: Lidocaine [Lidoderm 5% (700 mg) Transdermal Patch] 1 patch TP DAILY #30 adh..patch Methylprednisolone [Medrol Dosepack (4 mg/Tab) 21 Tab/Dosepak] 4 mg PO ASDIR PRN #21 tab.ds.pk PRN Reason:
[2017-09-17 18:12] VITALS: BP 132/79
== END 2017-09-17 18:12 | disposition home or self-care (01) ==
LOC: ER 16:10
DX: M54.41 Lumbago with sciatica, right side (principal); F17.200 Nicotine dependence, unspecified, uncomplicated; I50.9 Heart failure, unspecified; I11.0 Hypertensive heart disease with heart failure; Z90.49 Acquired absence of other specified parts of digestive tract; Z90.710 Acquired absence of both cervix and uterus
CPT/HCPCS: 99283; 96372; J2930; A9270

== ENCOUNTER 2017-09-19 13:41 | Emergency (ER) | payer MEDICARE, MEDICAID ==
--- NOTE | 2017-09-19 15:11 | ER Document Report ---
ED Medical Screen (RME) - General Chief Complaint: Back Pain Stated Complaint: BACK PAIN, LEFT LEG PAIN TRAVEL OUTSIDE OF THE [place] IN LAST 30 DAYS: No - HPI Notes: 09/19/17 15:07 Patient is a 57-year-old female with a history of restless leg syndrome, lower extremity edema, intermittent low back pain, and insomnia who presents to the ED complaining of right calf soreness with increasing swelling in the right lower extremity versus the left. Patient states that she was at her primary care provider today who noticed an increase in swelling of the right leg and upon hearing report of soreness increase in the right calf, wanted her evaluated at the emergency department for a possible blood clot. Patient states that she does take a fluid pill daily. Patient does report having low back pain intermittently over a long period of time, but her pain does not radiate. Patient states that she did recently travel back from [place] 1 week ago. Denies any smoking, IV drug use, on replacement, previous DVT/PE, recent surgery/trauma. Patient states that she is urinating normally and having normal bowel movements otherwise. Denies any headache, fever, URI, sore throat , chest pain, palpitations, syncope, cough, shortness of breath, wheeze, dyspnea , abdominal pain, nausea/vomiting/diarrhea, urinary retention, dysuria, hematuria, loss of control of bowel or bladder, numbness/tingling, saddle anesthesia, muscle paralysis/weakness, or rash. I have treated and performed a rapid initial assessment of this patient. A comprehensive ED assessment and evaluation of the patient, analysis of test results and completion of medical decision making process will be conducted by additional ED providers. PHYSICAL EXAMINATION: I do not think we do to be honest with you but if you want to collect one anyway send it down case GENERAL: Well-appearing, well-nourished and in no acute distress. A&Ox4. Answers questions appropriately. LUNGS: Breath sounds clear to auscultation bilaterally and equal. No wheezes rales or rhonchi. HEART: Regular rate and rhythm without murmurs, rubs, gallops. Extremities: 1+ pitting edema b/l. No calf tenderness. NEUROLOGICAL: Normal speech, normal gait. PSYCH: Normal mood, normal affect. - Related Data Allergies/Adverse Reactions: tramadol HCl [From [facility]] Allergy (Mild, Verified 09/17/17 16:11) aspirin Allergy (Verified 09/17/17 16:11) diclofenac sodium [From Voltaren] Allergy (Verified 09/17/17 16:11) ketorolac [From Toradol] Allergy (Verified 09/17/17 16:11) penicillin G [Penicillin G] Allergy (Verified 09/17/17 16:11) Penicillins Allergy (Verified 09/17/17 16:11) Past Medical History - Past Medical History Cardiac Medical History: Reports: Hx Congestive Heart Failure, Hx Hypertension Pulmonary Medical History: Reports: Hx COPD Neurological Medical History: Denies: Hx Seizures Renal/ Medical History: Reports: Hx Ovarian Cysts. Denies: Hx Peritoneal Dialysis GI Medical History: Reports: Hx Gastroesophageal Reflux Disease Musculoskeltal Medical History: Reports Hx Arthritis - RA Psychiatric Medical History: Reports: Hx Anxiety, Hx Bipolar Disorder, Hx Depression Past Surgical History: Reports: Hx Appendectomy, Hx Cholecystectomy, Hx Hysterectomy, Hx Orthopedic Surgery - Rt knee and hand - Immunizations Immunizations up to date: Yes Hx Diphtheria, Pertussis, Tetanus Vaccination: Yes
[2017-09-19] MEDS ORDERED: HYDROMORPHONE HCL INJ/PF 2 MG/ML AMPULE IM ONE (15:42)
[2017-09-19] MEDS ORDERED: FENTANYL CITRATE INJ/PF 100 MCG/2 ML AMPUL IV ONE (17:01)
[2017-09-19] MEDS ORDERED: FENTANYL CITRATE INJ/PF 100 MCG/2 ML AMPUL IM ONE (17:11)
--- NOTE | 2017-09-19 17:47 | ER Document Report ---
ED Neck/Back Problem - General Chief Complaint: Back Pain Stated Complaint: BACK PAIN, LEFT LEG PAIN Time Seen by Provider: 09/19/17 15:12 Mode of Arrival: Ambulatory Information source: Patient Notes: Pt is a 57 year old female with chronic back pain on pain management who presents to the ER today for left lower back pain that radiates down the back of the left leg to the ankle. She is here to rule out blood clot today as her primary care provider told her over the phone today that she could have one due to her symptoms and to come to the ER to get it ruled out. Pt has never had a blood clot and is not on hormone therapy, has not traveled recently. She was seen here a few days ago and treated for sciatica with the same pain, given steroids she states aren't helping. She states her oxycodone isn't helping. She denies numbness/tingling, loss of bladder or bowel function. TRAVEL OUTSIDE OF THE [place] IN LAST 30 DAYS: No - Related Data Allergies/Adverse Reactions: tramadol HCl [From Ultram] Allergy (Mild, Verified 09/17/17 16:11) aspirin Allergy (Verified 09/17/17 16:11) diclofenac sodium [From Voltaren] Allergy (Verified 09/17/17 16:11) ketorolac [From Toradol] Allergy (Verified 09/17/17 16:11) penicillin G [Penicillin G] Allergy (Verified 09/17/17 16:11) Penicillins Allergy (Verified 09/17/17 16:11) Past Medical History - General Information source: Patient - Social History Smoking Status: Current Every Day Smoker Family History: CAD, COPD, Hypertension Patient has suicidal ideation: No Patient has homicidal ideation: No - Past Medical History Cardiac Medical History: Reports: Hx Congestive Heart Failure, Hx Hypertension Pulmonary Medical History: Reports: Hx COPD Neurological Medical History: Denies: Hx Seizures Renal/ Medical History: Reports: Hx Ovarian Cysts. Denies: Hx Peritoneal Dialysis GI Medical History: Reports: Hx Gastroesophageal Reflux Disease Musculoskeltal Medical History: Reports Hx Arthritis - RA Psychiatric Medical History: Reports: Hx Anxiety, Hx Bipolar Disorder, Hx Depression Past Surgical History: Reports: Hx Appendectomy, Hx Cholecystectomy, Hx Hysterectomy, Hx Orthopedic Surgery - Rt knee and hand - Immunizations Immunizations up to date: Yes Hx Diphtheria, Pertussis, Tetanus Vaccination: Yes Review of Systems - Review of Systems Constitutional: No symptoms reported EENT: No symptoms reported Cardiovascular: No symptoms reported Respiratory: No symptoms reported Gastrointestinal: No symptoms reported Genitourinary: No symptoms reported Female Genitourinary: No symptoms reported Musculoskeletal: See HPI Skin: No symptoms reported Hematologic/Lymphatic: No symptoms reported Neurological/Psychological: No symptoms reported Physical Exam - Vital signs Vitals: Temp Pulse Resp BP Pulse Ox 98.1 F 77 17 146/76 H 98 09/19/17 18:09 09/19/17 18:09 09/19/17 18:09 09/19/17 18:09 09/19/17 18:09 - Notes Notes: PHYSICAL EXAMINATION: GENERAL: uncomfortable, laying on right side holding left hip, but in no acute distress. HEAD: Atraumatic, normocephalic. EYES: Pupils equal round and reactive to light, extraocular movements intact, sclera anicteric, conjunctiva are normal. NECK: Normal range of motion, supple without lymphadenopathy LUNGS: CTAB and equal. No wheezes rales or rhonchi. HEART: Regular rate and rhythm without murmurs ABDOMEN: Soft, no tenderness. No guarding, no rebound BACK: no vertebral tenderness, decreased ROM due to pain in left lower back GI/: no CVA tenderness EXTREMITIES: tender to entire left posterior leg, no specific calf tenderness, Melissa's sign negative, Normal range of motion, no pitting edema. No cyanosis. NEUROLOGICAL: Cranial nerves grossly intact. Normal sensory/motor exams. PSYCH: Normal mood, normal affect. SKIN: Warm, Dry, normal turgor, no rashes or lesions noted Course - Re-evaluation Re-evalutation: 09/19/17 20:11 doppler negative for blood clot. pt treated with pain medication here, feels better, to go home with robaxin. - Vital Signs Vital signs: Temp Pulse Resp BP Pulse Ox 98.1 F 77 17 146/76 H 98 09/19/17 18:09 09/19/17 18:09 09/19/17 18:09 09/19/17 18:09 09/19/17 18:09 Discharge - Discharge Clinical Impression: Chronic pain Qualifiers: Chronic pain type: other chronic pain Qualified Code(s): G89.29 - Other chronic pain Back pain Qualifiers: Back pain location: low back pain Chronicity: acute Back pain laterality: left Sciatica presence: with sciatica Sciatica laterality: sciatica of left side Qualified Code(s): M54.42 - Lumbago with sciatica, left side Condition: Stable Disposition: HOME, SELF-CARE Additional Instructions: Return immediately for any new or worsening symptoms. Follow up with primary care provider, call tomorrow to make followup appointment. Prescriptions: Methocarbamol [Robaxin 500 mg Tablet] 500 mg PO QID PRN #40 tablet PRN Reason:
[2017-09-19 18:11] VITALS: BP 146/76
--- NOTE | 2017-09-19 18:16 | RADIOLOGY REPORT (SQ) ---
EXAM DESCRIPTION: VENOUS UNILATERAL LOWER COMPLETED DATE/TIME: 09/19/2017 6:01 pm REASON FOR STUDY: lower ext swelling, pain, calf COMPARISON: None. TECHNIQUE: Dynamic and static leger scale and color images acquired of the left leg venous system. Se lected spectral images acquired with additional compression and augmentation maneuvers. The contralat eral common femoral vein and saphenofemoral junction were also imaged. Images stored on PACS. LIMITATIONS: None. FINDINGS: COMMON FEMORAL: Normal phasicity, compression and augmentation. No visualized echogenic ma terial on leger scale. No defects on color images. FEMORAL: Normal compression and augmentation. No visualized echogenic material on leger scale. No defe cts on color images. POPLITEAL: Normal compression, augmentation. No visualized echogenic material on leger scale. No defec ts on color images. CALF VESSELS: Normal compression, augmentation. No visualized echogenic material on leger scale. No de fects on color images. GSV and SSV: Normal compression, augmentation. No visualized echogenic material on leger scale. No def ects on color images. ANY DEEP VENOUS INSUFFICIENCY: Not evaluated. ANY EVIDENCE OF POPLITEAL CYST: No. OTHER: No other significant finding. CONTRALATERAL COMMON FEMORAL VEIN AND SAPHENOFEMORAL JUNCTION: Normal phasicity, compression and augmentation. No visualized echogenic material on leger scale. No de fects on color images. IMPRESSION: NO EVIDENCE OF DVT OR SVT IN THE LEFT LEG. TECHNICAL DOCUMENTATION: JOB ID: [id number] [place]-72 2010 [employer]- All Rights Reserved Reading location - IP/workstation name: [email or web address]
== END 2017-09-19 18:10 | disposition home or self-care (01) ==
LOC: ER 13:41
DX: M54.42 Lumbago with sciatica, left side (principal); G89.29 Other chronic pain; M54.9 Dorsalgia, unspecified; M79.605 Pain in left leg; Z79.899 Other long term (current) drug therapy; F17.200 Nicotine dependence, unspecified, uncomplicated; I10 Essential (primary) hypertension; J44.9 Chronic obstructive pulmonary disease, unspecified
CPT/HCPCS: 99284; 96372; 93971; J3010; J1170

== ENCOUNTER 2017-09-26 00:17 | Emergency (ER) | payer MEDICARE, MEDICAID ==
--- NOTE | 2017-09-26 01:16 | ER Document Report ---
ED General - General Chief Complaint: Back Pain Stated Complaint: BACK PAIN Mode of Arrival: Ambulatory Information source: Patient TRAVEL OUTSIDE OF THE [place] IN LAST 30 DAYS: No - HPI Notes: 57-year-old female with chronic history of back pain presents to the emergency room for left-sided sciatica. Patient states she is seen by pain management her primary care doctor. Reports she has a history of degenerative disc disease with history of herniated disks. Reports she has been taking [place] 3 times a day as well as muscle relaxers without relief. Denies any urinary, stool incontinence, saddle anesthesia. States that her back pain is usually under control but now she feels that the pain is getting worse. States she is unable to get into her pain management. Denies fevers, chills, chest pain, palpitations, shortness of breath, dyspnea, nausea, vomiting, diarrhea, abdominal pain, hematuria,blurred vision, double vision, loss of vision, speech changes, LH, dizziness, syncope, headaches, wheezing, ST, URI, neck pain, weakness, bowel or bladder dysfunction, saddle anesthesia, numbness or tingling in bilateral upper or lower extremities equally, muscle paralysis, weakness in bilateral upper or lower extremities equally or rash. Denies IV drug use. - Related Data Allergies/Adverse Reactions: tramadol HCl [From Ultram] Allergy (Mild, Verified 09/17/17 16:11) aspirin Allergy (Verified 09/17/17 16:11) diclofenac sodium [From Voltaren] Allergy (Verified 09/17/17 16:11) ketorolac [From Toradol] Allergy (Verified 09/17/17 16:11) penicillin G [Penicillin G] Allergy (Verified 09/17/17 16:11) Penicillins Allergy (Verified 09/17/17 16:11) Past Medical History - General Information source: Patient - Social History Smoking Status: Current Every Day Smoker Family History: CAD, COPD, Hypertension - Past Medical History Cardiac Medical History: Reports: Hx Congestive Heart Failure, Hx Hypertension Pulmonary Medical History: Reports: Hx COPD Neurological Medical History: Denies: Hx Seizures Renal/ Medical History: Reports: Hx Ovarian Cysts. Denies: Hx Peritoneal Dialysis GI Medical History: Reports: Hx Gastroesophageal Reflux Disease Musculoskeltal Medical History: Reports Hx Arthritis - RA Psychiatric Medical History: Reports: Hx Anxiety, Hx Bipolar Disorder, Hx Depression Past Surgical History: Reports: Hx Appendectomy, Hx Cholecystectomy, Hx Hysterectomy, Hx Orthopedic Surgery - Rt knee and hand - Immunizations Immunizations up to date: Yes Hx Diphtheria, Pertussis, Tetanus Vaccination: Yes Review of Systems - Review of Systems Constitutional: No symptoms reported EENT: No symptoms reported Cardiovascular: No symptoms reported Respiratory: No symptoms reported Gastrointestinal: No symptoms reported Genitourinary: No symptoms reported Female Genitourinary: No symptoms reported Musculoskeletal: See HPI Skin: No symptoms reported Hematologic/Lymphatic: No symptoms reported Neurological/Psychological: No symptoms reported Physical Exam - Vital signs Vitals: Temp Pulse Resp BP Pulse Ox 98.5 F 81 18 133/62 H 92 09/26/17 00:50 09/26/17 00:50 09/26/17 00:50 09/26/17 00:50 09/26/17 00:50 - Notes Notes: PHYSICAL EXAMINATION: GENERAL: Well-appearing, well-nourished and in no acute distress. HEAD: Atraumatic, normocephalic. EYES: Pupils equal round and reactive to light, extraocular movements intact, conjunctiva are normal. ENT: Nares patent, oropharynx clear without exudates. Moist mucous membranes. NECK: Normal range of motion, supple without lymphadenopathy LUNGS: Breath sounds clear to auscultation bilaterally and equal. No wheezes rales or rhonchi. HEART: Regular rate and rhythm without murmurs ABDOMEN: Soft, nontender, nondistended abdomen. No guarding, no rebound. No masses appreciated. Female : deferred Musculoskeletal: Normal range of motion, no pitting or edema. No cyanosis.Pain with flexion and extension at 30 degrees, positive straight leg test left. Normal hip rotation. DTR +2 in BLE equally. Strength 5 out of 5 both distally and proximally to bilateral lower extremities normal motor and sensory function in BLE equally. Distal pulses + 2 BLE equally. Noted paraspinal tenderness near L2 and L3. No spinal tenderness. No CVA tenderness bilaterally. Femoral pulses + 2 bilaterally and equally. No abrasions, scars, lacerations, ecchymosis of any recent trauma. normal gait. NEUROLOGICAL: Cranial nerves grossly intact. Normal speech, normal gait. Normal sensory, motor exams PSYCH: Normal mood, normal affect. SKIN: Warm, Dry, normal turgor, no rashes or lesions noted. Course - Re-evaluation Re-evalutation: 09/26/17 01:29 57-year-old female who is afebrile, vitals stable in no apparent distress with a history of chronic low back pain presents to the ER with low back pain without any signs of spinal cord compression, cauda equina syndrome , infection , aneurysm or any other serious etiology patient is neurologically intact. Given extremely low risk of these diagnoses further testing and evaluation of these possibilities do not appear to be indicated at this time the patient has been instructed to return if the symptoms worsen or change in anyway. Patient given lidocaine patch to apply as well as steroids. Follow-up with pain management and primary care provider. I have reevaluated this patient multiple times and no significant life threatening changes, no signs of toxicity, sepsis or peritonitis are noted. The patient and I have discussed the diagnosis and risks, and we agree with discharging home and close follow-up. We also discussed returning to the Emergency Department immediately if new or worsening symptoms occur with the understanding that symptoms and presentations can change. At this time will discharge with return precautions and follow-up recommendations. Verbal discharge instructions given a the bedside and opportunity for questions given. We have discussed the symptoms which are most concerning (e.g., saddle anesthesia, urinary or bowel incontinence or retention , changing or worsening pain) that necessitate immediate return. Medication warnings reviewed. Patient is in agreement with this plan and has verbalized understanding of return precautions and the need for primary care follow-up in the next 24-72 hours. Patient verbalized understanding of plan of care and agree with plan of care. Presentation of a well appearing patient complaining of acute on chronic back pain. No rapid progression of symptoms, systemic symptoms including fevers, chills, weight loss, history of recent bacterial infection, bilateral symptoms, numbness, weakness, difficulty walking, urinary retention or bowel incontinence , personal history of cancer, immunosuppression, diabetes, known AAA, or history of IV drug use. Exam is without point tenderness over vertebral bodies , pulsatile abdominal mass, and patient has symmetric and intact lower extremity strength, sensation, and reflexes without clonus. 2+ symmetric medial malleolar and dorsalis pedis pulses Based on history and physical, I have a very low suspicion of a concerning etiology of pain including epidural compression syndrome, spinal infection, transverse myelitis, malignancy, abdominal aortic aneurysm, renal colic, acute lower extremity claudication, neurogenic claudication, ankylosing spondylitis, or other intra-abdominal process. Due to absence of concerning risk factors in history and physical as well as absence of rapidly progressive, severe, or bilateral symptoms, will defer imaging at this point. Plan to manage conservatively with outpatient analgesia, analgesia, and physical therapy. - Acetaminophen 650 q 4 + ibuprofen 600 q 6 - Continue normal daily activities as tolerated by pain - Provide with standard musculoskeletal back pain exercise instructions - Instruct to follow up with primary care provider if symptoms not improving - Provide careful return precautions and concerning symptoms to watch for. - Vital Signs Vital signs: Temp Pulse Resp BP Pulse Ox 98.5 F 81 18 133/62 H 92 09/26/17 00:50 09/26/17 00:50 09/26/17 00:50 09/26/17 00:50 09/26/17 00:50 Discharge - Discharge Clinical Impression: Acute exacerbation of chronic low back pain Condition: Good Disposition: HOME, SELF-CARE Instructions: Low Back Pain ([facility]), Muscle Strain ([facility]), Warm Packs ([facility]) Additional Instructions: Plan to manage conservatively with outpatient analgesia, analgesia, and physical therapy. - Acetaminophen 650 q 4 + ibuprofen 600 q 6 - Continue normal daily activities as tolerated by pain - Provide with standard musculoskeletal back pain exercise instructions - Instruct to follow up with primary care provider if symptoms not improving - Provide careful return precautions and concerning symptoms to watch for. Return immediately for any new or worsening symptoms. Follow up with primary care provider, call tomorrow to make followup appointment. Referrals: RODRIGUEZ MELENDEZ MD [ACTIVE STAFF] - Follow up in 3-5 days DOROTOE MORRISON MD [ACTIVE STAFF] - Follow up as needed
[2017-09-26] MEDS ORDERED: LIDOCAINE 5% (700 MG) TRANSDERMAL ADH..PATCH TP ONE (01:32)
[2017-09-26 01:46] VITALS: BP 112/59
== END 2017-09-26 01:48 | disposition home or self-care (01) ==
LOC: ER 00:17
DX: G89.29 Other chronic pain (principal); M54.5 Low back pain; F17.200 Nicotine dependence, unspecified, uncomplicated; I50.9 Heart failure, unspecified; I11.0 Hypertensive heart disease with heart failure; J44.9 Chronic obstructive pulmonary disease, unspecified; Z90.49 Acquired absence of other specified parts of digestive tract; Z90.710 Acquired absence of both cervix and uterus; Z88.6 Allergy status to analgesic agent; Z88.0 Allergy status to penicillin
CPT/HCPCS: 99283

== ENCOUNTER 2018-07-05 18:08 | Emergency (ER) | payer MEDICARE, MEDICAID ==
[2018-07-05] MEDS ORDERED: NORMAL SALINE 1000 ML 1,000 ML IV ONE (19:21)
[2018-07-05] MEDS ORDERED: ONDANSETRON HCL INJ/PF 4 MG/2 ML SDV IV ONE (19:21)
[2018-07-05] MEDS ORDERED: FENTANYL CITRATE INJ/PF 100 MCG/2 ML AMPUL IV ONE (19:21)
--- NOTE | 2018-07-05 19:24 | ER Document Report ---
ED Medical Screen (RME) - General Chief Complaint: Flank Pain Stated Complaint: FLANK PAIN Time Seen by Provider: 07/05/18 19:16 Primary Care Provider: KANNAN FRITZ MD [Primary Care Provider] - Follow up as needed Notes: 58 years old female presents today with left flank pain radiating to the groin since this morning. She has chronic pain syndrome takes Percocet 7.5 mg 3 times a day. Denies any hematuria. Denies any dysuria frequency or urgency. Questionable right flank tenderness. No appropriate response for tenderness. TRAVEL OUTSIDE OF THE [place] IN LAST 30 DAYS: No - Related Data Allergies/Adverse Reactions: tramadol HCl [From Ultram] Allergy (Mild, Verified 07/05/18 19:14) aspirin Allergy (Verified 07/05/18 19:14) diclofenac sodium [From Voltaren] Allergy (Verified 07/05/18 19:14) ketorolac [From Toradol] Allergy (Verified 07/05/18 19:14) penicillin G [Penicillin G] Allergy (Verified 07/05/18 19:14) Penicillins Allergy (Verified 07/05/18 19:14) Past Medical History - Social History Frequency of alcohol use: None Drug Abuse: None - Past Medical History Cardiac Medical History: Reports: Hx Congestive Heart Failure, Hx Hypertension Pulmonary Medical History: Reports: Hx COPD Neurological Medical History: Denies: Hx Seizures Renal/ Medical History: Reports: Hx Ovarian Cysts. Denies: Hx Peritoneal Dialysis GI Medical History: Reports: Hx Gastroesophageal Reflux Disease Musculoskeltal Medical History: Reports Hx Arthritis - RA Psychiatric Medical History: Reports: Hx Anxiety, Hx Bipolar Disorder, Hx Depression Past Surgical History: Reports: Hx Appendectomy, Hx Cholecystectomy, Hx Hysterectomy, Hx Orthopedic Surgery - Rt knee and hand - Immunizations Immunizations up to date: Yes Hx Diphtheria, Pertussis, Tetanus Vaccination: Yes Physical Exam - Vital signs Vitals: Temp Pulse Resp BP Pulse Ox 98.4 F 71 14 195/79 H 93 07/05/18 18:43 07/05/18 18:43 07/05/18 18:43 07/05/18 18:43 07/05/18 18:43 Course - Vital Signs Vital signs: Temp Pulse Resp BP Pulse Ox 98.4 F 71 14 195/79 H 93 07/05/18 18:43 07/05/18 18:43 07/05/18 18:43 07/05/18 18:43 07/05/18 18:43 Doctor's Discharge - Discharge Referrals: KANNAN FRITZ MD [Primary Care Provider] - Follow up as needed
[2018-07-05 19:40] LABS: APPEARANCE,URINE CLEAR; BILIRUBIN,URINE NEGATIVE (NEGATIVE); COLOR,URINE STRAW; GLUCOSE, URINE NEGATIVE (NEGATIVE); KETONES,URINE NEGATIVE (NEGATIVE); LEUKOCYTE ESTERASE,URINE NEGATIVE (NEGATIVE); NITRITE,URINE NEGATIVE (NEGATIVE); PROTEIN,URINE NEGATIVE (NEGATIVE); URINE SPECIFIC GRAVITY 1.002; UROBILINOGEN,URINE NEGATIVE mg/dL (<2.0)
[2018-07-05 20:52] LABS: ABSOLUTE EOSINOPHILS # (AUTO) 0.1 10^3/uL (0.0-0.6); ABSOLUTE LYMPHOCYTES (AUTO) 2.5 10^3/uL (0.5-4.7); ABSOLUTE MONOCYTES (AUTO) 0.6 10^3/uL (0.1-1.4); ABSOLUTE NEUT (AUTO) 4.4 10^3/uL (1.7-8.2); BASOPHILS % (AUTO) 0.6 % (0-2); HEMOGLOBIN 14.1 g/dL (12.0-15.5); LYMPHOCYTES % (AUTO) 32.9 % (13-45); MEAN CORPUSCULAR HEMOGLOBIN 31.6 pg (27.0-33.4); MEAN CORPUSCULAR HGB CONC 32.8 g/dL (32.0-36.0); MEAN CORPUSCULAR VOLUME 96 fl (80-97); MONOCYTES % (AUTO) 8.2 % (3-13); PLATELET COUNT 222 10^3/uL (150-450); RED BLOOD COUNT 4.46 10^6/uL (3.72-5.28); RED CELL DISTRIBUTION WIDTH 17.2 % (11.5-14.0); SEGMENTED NEUTROPHILS % (AUTO) 57.3 % (42-78); TOTAL CELLS COUNTED % (AUTO) 100 %; WHITE BLOOD COUNT 7.6 10^3/uL (4.0-10.5)
--- NOTE | 2018-07-05 20:58 | RADIOLOGY REPORT (SQ) ---
EXAM DESCRIPTION: CT ABDOMEN PELVIS WITHOUT IV CONTRAST COMPLETED DATE/TME: 07/05/2018 19:22 CLINICAL HISTORY: 58 years, Female, Left flank pain COMPARISON: EXAM DESCRIPTION: CLINICAL HISTORY: Left flank pain COMPARISON: None Available. TECHNIQUE: Contiguous axial images of the abdomen and pelvis were obtained followed by reconstruction images. This exam was performed according to our departmental dose-optimization program, which includes automated exposure control, adjustment of the mA and/or kV according to patient size and/or use of iterative reconstruction technique. FINDINGS: Gallbladder is surgically absent. There is marked left renal atrophy. There is colonic diverticulosis. No evidence of diverticulitis. No evidence of appendicitis. No other acute abnormality. There is no hydronephrosis or renal stones. Adrenal glands are within normal limits. Aorta is of normal caliber and tapering. There is no free fluid in the abdomen or pelvis. There is no bowel obstruction. There is no stranding of the mesenteric fat to suggest an inflammatory response. IMPRESSION: No acute intra-abdominal abnormality.
[2018-07-05 21:05] LABS: ALANINE AMINOTRANSFERASE < 6 U/L (9-52); ALBUMIN 3.8 g/dL (3.5-5.0); ALKALINE PHOSPHATASE 94 U/L (38-126); ANION GAP 8 (5-19); ASPARTATE AMINO TRANSFERASE 16 U/L (14-36); BILIRUBIN,DIRECT 0.3 mg/dL (0.0-0.4); BILIRUBIN,TOTAL 0.7 mg/dL (0.2-1.3); BLOOD UREA NITROGEN 5 mg/dL (7-20); CALCIUM 9.1 mg/dL (8.4-10.2); CARBON DIOXIDE 32 mmol/L (22-30); CHLORIDE 98 mmol/L (98-107); GLUCOSE 92 mg/dL (75-110); POTASSIUM 4.7 mmol/L (3.6-5.0); SODIUM 137.6 mmol/L (137-145); TOTAL PROTEIN 6.5 g/dL (6.3-8.2)
[2018-07-05] MEDS ORDERED: IBUPROFEN 600 MG TABLET PO ONE (21:28)
--- NOTE | 2018-07-05 21:30 | ER Document Report ---
ED General - General Chief Complaint: Flank Pain Stated Complaint: FLANK PAIN Time Seen by Provider: 07/05/18 19:16 Primary Care Provider: KANNAN FRITZ MD [Primary Care Provider] - Follow up as needed TRAVEL OUTSIDE OF THE [place] IN LAST 30 DAYS: No - HPI Notes: Patient presents to the emergency department for evaluation of right flank pain. She states to me she believes that is her "kidney." She has had one episode of emesis today. Emesis was nonbloody, nonbilious. She states her pain is not associated with eating. She has had normal bowel movements. No urinary symptoms. - Related Data Allergies/Adverse Reactions: tramadol HCl [From Ultram] Allergy (Mild, Verified 07/05/18 19:14) aspirin Allergy (Verified 07/05/18 19:14) diclofenac sodium [From Voltaren] Allergy (Verified 07/05/18 19:14) ketorolac [From Toradol] Allergy (Verified 07/05/18 19:14) penicillin G [Penicillin G] Allergy (Verified 07/05/18 19:14) Penicillins Allergy (Verified 07/05/18 19:14) Past Medical History - General Information source: Patient - Social History Smoking Status: Current Every Day Smoker Frequency of alcohol use: None Drug Abuse: None Family History: CAD, COPD, Hypertension Patient has suicidal ideation: No Patient has homicidal ideation: No - Past Medical History Cardiac Medical History: Reports: Hx Congestive Heart Failure, Hx Hypertension Pulmonary Medical History: Reports: Hx COPD Neurological Medical History: Denies: Hx Seizures Renal/ Medical History: Reports: Hx Ovarian Cysts. Denies: Hx Peritoneal Dialysis GI Medical History: Reports: Hx Gastroesophageal Reflux Disease Musculoskeletal Medical History: Reports Hx Arthritis - RA Psychiatric Medical History: Reports: Hx Anxiety, Hx Bipolar Disorder, Hx Depression Past Surgical History: Reports: Hx Appendectomy, Hx Cholecystectomy, Hx Hysterectomy, Hx Orthopedic Surgery - Rt knee and hand - Immunizations Immunizations up to date: Yes Hx Diphtheria, Pertussis, Tetanus Vaccination: Yes Review of Systems - Review of Systems Constitutional: No symptoms reported EENT: No symptoms reported Cardiovascular: No symptoms reported Respiratory: No symptoms reported Gastrointestinal: See HPI Genitourinary: No symptoms reported Skin: No symptoms reported Neurological/Psychological: No symptoms reported Physical Exam - Vital signs Vitals: Temp Pulse Resp BP Pulse Ox 98.4 F 71 14 195/79 H 93 07/05/18 18:43 07/05/18 18:43 07/05/18 18:43 07/05/18 18:43 07/05/18 18:43 Interpretation: Hypertensive - Notes Notes: Vital signs reviewed, please refer to chart. Patient is normocephalic, atraumatic. Pupils equal round, reactive to light. Neck is supple without meningismus. Heart is regular rate and rhythm. Lungs are clear to auscultation bilaterally. Abdomen is soft, epigastric and right upper quadrant tenderness without rebound or guarding, normoactive bowel sounds throughout. Extremities without cyanosis, clubbing, edema. Peripheral pulses are equal. Skin is warm and dry. Patient is awake, alert, neurological exam is nonfocal. Course - Re-evaluation Re-evalutation: 07/05/18 21:27 Patient presents emergency department for evaluation of abdominal/flank pain. She believes it is her kidney. She had laboratory investigations and imaging. All results were unremarkable. I do not have a clear etiology for this patient's pain and vomiting at this time. We will send her home with nausea medication. She asks for something for pain overnight. I will send her home after dose of an oral anti-inflammatory here. She is to return to the emergency department for worsening or new concerning symptoms, otherwise follow-up with her primary care physician. - Vital Signs Vital signs: Temp Pulse Resp BP Pulse Ox 98.4 F 71 14 195/79 H 93 07/05/18 18:43 07/05/18 18:43 07/05/18 18:43 07/05/18 18:43 07/05/18 18:43 - Laboratory Result Diagrams: 07/05/18 20:38 07/05/18 20:38 Laboratory results interpreted by me: 07/05/18 07/05/18 20:38 20:38 RDW 17.2 H Carbon Dioxide 32 H BUN 5 L ALT < 6 L - Diagnostic Test Radiology reviewed: Reports reviewed - Unremarkable Discharge - Discharge Clinical Impression: Nausea & vomiting Abdominal pain Qualifiers: Abdominal location: upper abdomen, unspecified Qualified Code(s): R10.10 - Upper abdominal pain, unspecified Condition: Good Disposition: HOME, SELF-CARE Instructions: Abdominal Pain ([facility]) Additional Instructions: Follow-up with your doctor tomorrow. Small frequent sips of fluids. Return to the emergency department with worsening or new concerning symptoms. Referrals: KANNAN FRITZ MD [Primary Care Provider] - Follow up as needed
[2018-07-05 21:38] VITALS: BP 184/82
== END 2018-07-05 21:38 | disposition home or self-care (01) ==
LOC: ER 18:08
DX: R10.10 Upper abdominal pain, unspecified (principal); R10.816 Epigastric abdominal tenderness; R10.811 Right upper quadrant abdominal tenderness; R11.2 Nausea with vomiting, unspecified; I10 Essential (primary) hypertension; J44.9 Chronic obstructive pulmonary disease, unspecified; F17.200 Nicotine dependence, unspecified, uncomplicated; Z90.710 Acquired absence of both cervix and uterus; Z90.49 Acquired absence of other specified parts of digestive tract; Z88.5 Allergy status to narcotic agent; Z88.6 Allergy status to analgesic agent; Z88.8 Allergy status to other drugs, medicaments and biological substances; Z88.0 Allergy status to penicillin
CPT/HCPCS: 99284; 96361; 96374; 96375; 36415; 85025; 80053; 81001; 74176; J3010; J2405; J7030

== ENCOUNTER → 2018-07-05 | Outpatient (CLI) | payer MEDICARE, MEDICAID ==
--- NOTE | 2018-07-05 15:07 | RADIOLOGY REPORT (SQ) ---
EXAM DESCRIPTION: CERV SP 4 OR 5 VIEWS COMPLETED DATE/TIME: 07/05/2018 2:57 pm REASON FOR STUDY: M54.2 CERVICALGIA M54.2 CERVICALGIA COMPARISON: None. NUMBER OF VIEWS: Five views. TECHNIQUE: AP, lateral, obliques and odontoid radiographic images acquired of the cervical spine. LIMITATIONS: None. FINDINGS: MINERALIZATION: Normal. ALIGNMENT: There is slight retrolisthesis of C5 on C6. VERTEBRAE: Vertebral bodies of normal height. DISCS: Mild disc space narrowing at C5-C6. FORAMINA: No osteophytes or foraminal narrowing. LATERAL AND POSTERIOR ELEMENTS: Facets, lateral masses and spinous processes without significant find ings. HARDWARE: None in the spine. SOFT TISSUES: No masses or calcifications. Lung apices clear. OTHER: No other significant finding. IMPRESSION: Retrolisthesis of C5 on 6 with slight joint space narrowing at this level as well. No f oraminal narrowing. TECHNICAL DOCUMENTATION: JOB ID: [id number] [employer]- All Rights Reserved Reading location - IP/workstation name: [email or web address]
== END ==
LOC: RAD 14:25
PROVIDERS: ATTEND Surgery
DX: M54.2 Cervicalgia (principal)
CPT/HCPCS: 72050

== ENCOUNTER → 2018-07-18 | Outpatient (CLI) | payer MEDICARE, MEDICAID ==
--- NOTE | 2018-07-20 08:15 | XCELERA REPORT ---
[address] [address] Lower Extremity Arterial Evaluation Name: ROSANNE CAVANAUGH Age: 58 yrs Gender: Female : 1960 Patient Status: Outpatient Patient Location: Study Date: 07/18/2018 11:17 AM Procedure: A color flow and duplex scan of the lower extremity arteries was performed bilaterally with velocity and waveform anaylsis. Ankle brachial indicies performed. Reason For Study: CLAUDICATION Ordering Physician: DON QUIROZ Performed By: Roberth Rendon Measurements and Calculations Right Left OPERATIONS SUPERINTENDENT PSV 124.3 38.7 cm/sec Prox PFA PSV -87.1 -23.2 cm/sec Prox SFA PSV 115.0 48.3 cm/sec Mid SFA PSV -154.5 -64.1 cm/sec Dist SFA PSV -93.3 -55.0 cm/sec Prox Pop A PSV 53.4 31.0 cm/sec Dist JOCELYNE PSV 48.3 24.6 cm/sec Dist COOKING INSTRUCTOR PSV 56.2 33.6 cm/sec Darrel Pedis PSV -19.5 -11.4 cm/sec Right Side Arterial Evaluation Normal velocity and triphasic waveforms noted in the Common Femoral artery. Biphasic with normal velocity form the distal Femoral to the infrageniculate vessels Ankle Brachial index not 0.89. Left Side Arterial Evaluation Low velocity and Monophasic waveforms noted from the Common Femoral artery to the infrageniculate vessels Ankle Brachial index not 0.55. Interpretation Summary Mild disease on the right, with focus on the distal Femoral artery. Severe disease on the left, suggestive of inflow stenosis or occlusion. ANNA on the right consistent with mild arterial compromise. ANNA on the left consistent with moderate arterial compromise. : DON QUIROZ > Don Quiroz
== END ==
LOC: SP 11:01
PROVIDERS: ATTEND Surgery
DX: I73.9 Peripheral vascular disease, unspecified (principal)
CPT/HCPCS: 93925

== ENCOUNTER 2018-08-06 19:34 | Observation (INO) | payer MEDICARE, MEDICAID ==
--- NOTE | 2018-08-06 20:48 | ER Document Report ---
ED General - General Chief Complaint: Chest Pain Stated Complaint: CHEST/BACK PAIN Time Seen by Provider: 08/06/18 20:26 Notes: Patient is a 58-year-old female with hypertension that presents to the emergency department for chief complaint of chest pain, epigastric abdominal pain, and neck pain. Patient reports his symptoms started 2 days ago, have been constant, she describes it as a severe and 10 out of 10 pain, describes as a aching and burning sensation that does go to the back occasionally, and to the left neck, she had some numbness in her left leg and has felt weak as well although she is been able to ambulate. She does report she is being worked up for peripheral vascular disease and did see a vascular surgeon, and knows that she has decreased blood flow to the left leg, but has been told she does not need surgery yet. Denies any numbness or tingling in the arms or face. Denies any slurred speech or difficulty speaking. She states she is had heartburn in the past, denies history of coronary disease, but states she is been told she has had CHF. She does smoke cigarettes as well. She denies having any shortness of breath, difficulty breathing, nausea, vomiting, diaphoresis, dysuria or hematuria. Past Medical History: Hypertension, CHF Past Surgical History: Appendectomy, hysterectomy, cholecystectomy Social History: Admits to smoking cigarettes, denies alcohol or drug use. Family History: Reviewed and noncontributory for presenting illness Allergies: Reviewed, see documented allergy list. REVIEW OF SYSTEMS: Other than noted above, the 12 point review of systems was reviewed with the patient and were negative, all pertinent findings are included in the HPI. PHYSICAL EXAMINATION: Vital signs reviewed, nursing noted reviewed. GENERAL: Appears older than stated age, appears uncomfortable HEAD: Atraumatic, normocephalic. EYES: Eyes appear normal, extraocular movements intact, sclera anicteric, conjunctiva are normal. ENT: nares patent, oropharynx clear without exudates. Moist mucous membranes. NECK: Normal range of motion, supple without lymphadenopathy LUNGS: Breath sounds clear to auscultation bilaterally and equal. No wheezes rales or rhonchi. No chest wall tenderness HEART: Regular rate and rhythm without murmurs ABDOMEN: Soft, epigastric tenderness with palpation, normoactive bowel sounds. No rebound, guarding, or rigidity. No masses appreciated. EXTREMITIES: Nontender, good range of motion, no pitting or edema. NEUROLOGICAL: No focal neurological deficits. Moves all extremities spontaneously Motor and sensory grossly intact on exam. Did not appreciate any weakness in the right lower extremity, compared to the left on exam, sensation was equal and intact distally in all extremities. Cranial nerves tested and intact. PSYCH: Normal mood, normal affect. SKIN: Warm, Dry, normal turgor, no rashes or lesions noted on exposed skin TRAVEL OUTSIDE OF THE [place] IN LAST 30 DAYS: No - Related Data Allergies/Adverse Reactions: tramadol HCl [From Ultram] Allergy (Mild, Verified 08/06/18 19:40) aspirin Allergy (Verified 08/06/18 19:40) diclofenac sodium [From Voltaren] Allergy (Verified 08/06/18 19:40) ketorolac [From Toradol] Allergy (Verified 08/06/18 19:40) penicillin G [Penicillin G] Allergy (Verified 08/06/18 19:40) Penicillins Allergy (Verified 08/06/18 19:40) Past Medical History - Social History Smoking Status: Current Every Day Smoker Family History: CAD, COPD, Hypertension - Past Medical History Cardiac Medical History: Reports: Hx Congestive Heart Failure, Hx Hypertension Pulmonary Medical History: Reports: Hx COPD Neurological Medical History: Denies: Hx Seizures Renal/ Medical History: Reports: Hx Ovarian Cysts. Denies: Hx Peritoneal Dialysis GI Medical History: Reports: Hx Gastroesophageal Reflux Disease Musculoskeletal Medical History: Reports Hx Arthritis - RA Psychiatric Medical History: Reports: Hx Anxiety, Hx Bipolar Disorder, Hx Depression Past Surgical History: Reports: Hx Appendectomy, Hx Cholecystectomy, Hx Hysterectomy, Hx Orthopedic Surgery - Rt knee and hand - Immunizations Immunizations up to date: Yes Hx Diphtheria, Pertussis, Tetanus Vaccination: Yes Physical Exam - Vital signs Vitals: Temp Pulse Resp BP Pulse Ox 98.3 F 79 18 148/68 H 93 08/06/18 19:50 08/06/18 19:50 08/06/18 19:50 08/06/18 19:50 08/06/18 19:50 Course - Re-evaluation Re-evalutation: Patient seen and examined vital signs reviewed. Laboratory data and imaging were ordered as appropriate for the patient's presenting symptoms and complaint, with consideration of any critical or life threatening conditions that may be associated with their obtained history and exam as noted above. Patient was treated with IV fluids, Zofran and morphine, she still having some pain, GI cocktail and nitroglycerin are ordered, she has most relief after receiving the nitroglycerin, she is allergic to aspirin. Her EKG did not demonstrate any ischemic changes, as noted, she did have 2 negative troponins, however the patient is high risk, she has peripheral vascular disease, that is rather severe, I did order CT angiogram of the chest abdomen pelvis to evaluate for possible aortic pathology leading to the patient's chest pain, however it was negative for any dissection, she was noted to have significant aortic stenosis, infrarenally, and occlusion of the iliac artery, patient was aware of these findings, after discussing them with her. The patient was re-evaluated and was improved after treatment nitroglycerin, therefore placed Nitropaste on the patient, feel the patient is high risk, and not be safe to be discharged at this time given that she has chest pain radiating to the left side of her chest and jaw, with relief with nitroglycerin, would warrant admission to the hospital and further workup. Aspirin not ordered as the patient is allergic. Evaluation was most consistent with chest pain, peripheral vascular disease At this point I feel that the patient should be admitted to the hospital, for serial troponin testing as a possible stress testing, given that she has significant risk factors for coronary artery disease, patient was agreeable with this plan of care, discussed case with Dr. Balderrama who accepted the patient under his service. *Note is created using voice recognition software and may contain spelling, syntax or grammatical errors. Laboratory 08/06/18 08/06/18 08/06/18 20:20 20:25 20:25 WBC 7.2 RBC 4.84 Hgb 15.2 Hct 45.3 MCV 94 MCH 31.3 MCHC 33.5 RDW 16.7 H Plt Count 210 Seg Neutrophils % 46.9 Lymphocytes % 45.2 H Monocytes % 6.4 Eosinophils % 1.3 Basophils % 0.2 Absolute Neutrophils 3.4 Absolute Lymphocytes 3.2 Absolute Monocytes 0.5 Absolute Eosinophils 0.1 Absolute Basophils 0.0 Sodium 134.7 L Potassium 4.0 Chloride 98 Carbon Dioxide 27 Anion Gap 10 BUN 10 Creatinine 0.90 Est GFR ( Amer) > 60 Est GFR (Non-Af Amer) > 60 Glucose 87 Calcium 9.6 Total Bilirubin 0.4 Direct Bilirubin 0.4 Neonat Total Bilirubin Not Reportable Neonat Direct Bilirubin Not Reportable Neonat Indirect Bili Not Reportable AST 29 ALT 20 Alkaline Phosphatase 109 Troponin I Total Protein 7.4 Albumin 4.5 Lipase 81.8 Urine Color STRAW Urine Appearance CLEAR Urine pH 6.0 Ur Specific Anza 1.003 Urine Protein NEGATIVE Urine Glucose (UA) NEGATIVE Urine Ketones NEGATIVE Urine Blood NEGATIVE Urine Nitrite NEGATIVE Urine Bilirubin NEGATIVE Urine Urobilinogen NEGATIVE Ur Leukocyte Esterase NEGATIVE Urine WBC (Auto) 1 Urine RBC (Auto) 1 Squamous Epi Cells Auto 1 Urine Mucus (Auto) RARE Urine Ascorbic Acid NEGATIVE 08/06/18 08/06/18 20:25 23:35 WBC RBC Hgb Hct MCV MCH MCHC RDW Plt Count Seg Neutrophils % Lymphocytes % Monocytes % Eosinophils % Basophils % Absolute Neutrophils Absolute Lymphocytes Absolute Monocytes Absolute Eosinophils Absolute Basophils Sodium Potassium Chloride Carbon Dioxide Anion Gap BUN Creatinine Est GFR ( Amer) Est GFR (Non-Af Amer) Glucose Calcium Total Bilirubin Direct Bilirubin Neonat Total Bilirubin Neonat Direct Bilirubin Neonat Indirect Bili AST ALT Alkaline Phosphatase Troponin I < 0.012 < 0.012 Total Protein Albumin Lipase Urine Color Urine Appearance Urine pH Ur Specific Anza Urine Protein Urine Glucose (UA) Urine Ketones Urine Blood Urine Nitrite Urine Bilirubin Urine Urobilinogen Ur Leukocyte Esterase Urine WBC (Auto) Urine RBC (Auto) Squamous Epi Cells Auto Urine Mucus (Auto) Urine Ascorbic Acid Abdomen/Pelvis CTA 08/06/18 20:46 IMPRESSION: Diffuse intraluminal plaque throughout the thoracic and abdominal aorta, with 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 Consider dedicated CT angiogram of the lower extremities for complete evaluation of the vasculature. 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 Consider dedicated CT angiogram of the lower extremities for complete evaluation of the vasculature. Head CT 08/06/18 20:46 IMPRESSION: No acute intracranial abnormalities. - Vital Signs Vital signs: Temp Pulse Resp BP Pulse Ox 98.4 F 79 17 133/76 H 94 08/06/18 23:37 08/06/18 19:50 08/07/18 01:21 08/07/18 01:21 08/07/18 01:21 - Laboratory Result Diagrams: 08/06/18 20:25 08/06/18 20:25 Laboratory results interpreted by me: 08/06/18 08/06/18 20:25 20:25 RDW 16.7 H Lymphocytes % 45.2 H Sodium 134.7 L - EKG Interpretation by Me Additional EKG results interpreted by me: EKG demonstrates sinus rhythm with a ventricular rate of 79 bpm, normal axis, QTC 450 ms, there is minimal nonspecific T wave inversion in lead aVL, no ST changes, no prior for comparison. Discharge - Discharge Clinical Impression: Peripheral vascular disease, Epigastric abdominal pain Chest pain Qualifiers: Chest pain type: unspecified Qualified Code(s): R07.9 - Chest pain, unspecified Condition: Stable Disposition: ADMITTED OBSERVATION Admitting Provider: Hospitalist - Dr. Balderrama Unit Admitted: Telemetry
[2018-08-06] MEDS ORDERED: NORMAL SALINE 1000 ML 1,000 ML IV ONE (20:49)
[2018-08-06] MEDS ORDERED: ONDANSETRON HCL INJ/PF 4 MG/2 ML SDV IV ONE (20:50)
[2018-08-06] MEDS ORDERED: MORPHINE SULFATE 10 MG/ML INJ IV ONE (20:50)
[2018-08-06 20:58] LABS: ABSOLUTE EOSINOPHILS # (AUTO) 0.1 10^3/uL (0.0-0.6); ABSOLUTE LYMPHOCYTES (AUTO) 3.2 10^3/uL (0.5-4.7); ABSOLUTE MONOCYTES (AUTO) 0.5 10^3/uL (0.1-1.4); ABSOLUTE NEUT (AUTO) 3.4 10^3/uL (1.7-8.2); BASOPHILS % (AUTO) 0.2 % (0-2); EOSINOPHILS % (AUTO) 1.3 % (0-6); HEMATOCRIT 45.3 % (36.0-47.0); HEMOGLOBIN 15.2 g/dL (12.0-15.5); LYMPHOCYTES % (AUTO) 45.2 % (13-45); MEAN CORPUSCULAR HEMOGLOBIN 31.3 pg (27.0-33.4); MEAN CORPUSCULAR HGB CONC 33.5 g/dL (32.0-36.0); MEAN CORPUSCULAR VOLUME 94 fl (80-97); MONOCYTES % (AUTO) 6.4 % (3-13); PLATELET COUNT 210 10^3/uL (150-450); RED BLOOD COUNT 4.84 10^6/uL (3.72-5.28); RED CELL DISTRIBUTION WIDTH 16.7 % (11.5-14.0); SEGMENTED NEUTROPHILS % (AUTO) 46.9 % (42-78); TOTAL CELLS COUNTED % (AUTO) 100 %; WHITE BLOOD COUNT 7.2 10^3/uL (4.0-10.5)
[2018-08-06 21:04] LABS: ALANINE AMINOTRANSFERASE 20 U/L (9-52); ALBUMIN 4.5 g/dL (3.5-5.0); ALKALINE PHOSPHATASE 109 U/L (38-126); ANION GAP 10 (5-19); ASPARTATE AMINO TRANSFERASE 29 U/L (14-36); BILIRUBIN,DIRECT 0.4 mg/dL (0.0-0.4); BILIRUBIN,TOTAL 0.4 mg/dL (0.2-1.3); BLOOD UREA NITROGEN 10 mg/dL (7-20); CALCIUM 9.6 mg/dL (8.4-10.2); CARBON DIOXIDE 27 mmol/L (22-30); CHLORIDE 98 mmol/L (98-107); GLUCOSE 87 mg/dL (75-110); LIPASE 81.8 U/L (23-300); SODIUM 134.7 mmol/L (137-145); TOTAL PROTEIN 7.4 g/dL (6.3-8.2)
[2018-08-06 21:16] LABS: APPEARANCE,URINE CLEAR; BILIRUBIN,URINE NEGATIVE (NEGATIVE); COLOR,URINE STRAW; GLUCOSE, URINE NEGATIVE (NEGATIVE); KETONES,URINE NEGATIVE (NEGATIVE); LEUKOCYTE ESTERASE,URINE NEGATIVE (NEGATIVE); NITRITE,URINE NEGATIVE (NEGATIVE); PROTEIN,URINE NEGATIVE (NEGATIVE); URINE SPECIFIC GRAVITY 1.003; UROBILINOGEN,URINE NEGATIVE mg/dL (<2.0)
--- NOTE | 2018-08-06 22:05 | RADIOLOGY REPORT (SQ) ---
EXAM DESCRIPTION: CT HEAD WITHOUT IV CONTRAST COMPLETED DATE/TME: 08/06/2018 20:46 CLINICAL HISTORY: 58 years, Female, left leg numbness COMPARISON: None Available. Technique: Contiguous axial images of the brain were obtained without the administration of intravenous contrast. Coronal and sagittal reformats obtained and reviewed. This exam was performed according to our departmental dose-optimization program which includes use of Automated Exposure Control, adjustment of the mA and/or kV according to patient size and/or use of iterative reconstruction technique. Findings: Brain: No hemorrhage. No territorial infarct. No mass effect. No herniation. Ventricles: Within normal limits for patient's age. Bones: No acute osseous abnormality. Paranasal sinuses: Mild inflammatory changes. Mastoid air cells: Unremarkable. Soft tissues: No acute abnormality. IMPRESSION: No acute intracranial abnormalities.
--- NOTE | 2018-08-06 22:44 | RADIOLOGY REPORT (SQ) ---
CT ANGIOGRAPHY OF THE CHEST, ABDOMEN, AND PELVIS HISTORY: Chest pain. Abdominal pain. Left leg weakness. COMPARISON: None.. TECHNIQUE: CT angiogram of the chest, abdomen, and pelvis with IV contrast. 3-D MIP images were obtained in coronal and sagittal reconstructions in post-processing. This exam was performed according to our departmental dose-optimization program, which includes automated exposure control, adjustment of the mA and/or kV according to patient size and/or use of iterative reconstruction technique. FINDINGS: No filling defects are seen in the main pulmonary arteries or the segmental branches. There is diffuse fibrofatty intimal plaque throughout the thoracic and abdominal aorta, most severe within the infrarenal aorta with greater than 50% luminal stenosis. Additionally, there is occlusion of the left common iliac artery extending into the left external iliac artery, with reconstitution of flow at the level of the proximal left common femoral artery. The left internal iliac artery is markedly stenotic with diminished opacification. There is also stenosis at the ostia of the proximal left renal artery, celiac axis, and internal mesenteric artery. The thyroid gland is unremarkable. No mediastinal or hilar adenopathy. The heart size is normal without pericardial effusion. No consolidation, pleural effusion, or pneumothorax. Mild paraseptal emphysema. No acute osseous findings. There has been a prior cholecystectomy. The liver, spleen, pancreas, adrenal glands, and right kidney are normal. The left kidney is atrophic. There has been a prior hysterectomy. There are scattered colonic diverticula without surrounding inflammatory changes. The appendix is not seen. No intraperitoneal free fluid or free air is seen. No acute osseous findings are seen. IMPRESSION: Diffuse intraluminal plaque throughout the thoracic and abdominal aorta, with 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 Consider dedicated CT angiogram of the lower extremities for complete evaluation of the vasculature.
--- NOTE | 2018-08-06 22:54 | EKG REPORT ---
SEVERITY:- NORMAL ECG - SINUS RHYTHM : Confirmed by: Chris Monge MD 06-Aug-2018 22:53:32
[2018-08-06] MEDS ORDERED: LIDOCAINE 2% VISCOUS SOLN 20 ML UDCUP PO ONE (23:38)
[2018-08-06] MEDS ORDERED: METOCLOPRAMIDE HCL ORAL SOLN 10 MG/10 ML UDCUP PO ONE (23:38)
[2018-08-06] MEDS ORDERED: MAG HYDROX/AL HYDROX/SIMETH SUSP 30 ML UDCUP PO ONE (23:38)
[2018-08-06] MEDS ORDERED: NITROGLYCERIN 0.4 MG/TAB 25 TAB/BOTTLE SL ONE (23:59)
[2018-08-07] MEDS ORDERED: NITROGLYCERIN 2% OINTMENT 1 GM PACKET TP ONE (00:16)
[2018-08-07] MEDS ORDERED: NITROGLYCERIN 0.4 MG/TAB 25 TAB/BOTTLE SL PRN (00:37)
[2018-08-07] MEDS ORDERED: CLONAZEPAM 1 MG TABLET PO PRN (00:42)
[2018-08-07] MEDS: ATORVASTATIN CALCIUM 80 MG TABLET PO SCH ×2 (01:53→22:00)
--- NOTE | 2018-08-07 05:50 | PDOC H&P ---
History of Present Illness Admission Date/PCP: 08/07/18 00:48 DON QUIROZ MD Patient complains of: Epigastric and chest pain History of Present Illness: ROSANNE CAVANAUGH is a 58 year old female with a past medical history of depression, anxiety, hypertension, COPD, chronic bronchitis, peripheral vascular disease and ongoing tobacco dependence. She presents with vague chest pain which is described as 3-4/5 intensity, both intermittent and constant as well as sharp with dull and pressure occurring with exertion and at rest, radiating to the left shoulder and arm. She is unable to identify alleviating or exacerbating factors she is unable to recall her medication regiment.. She denies recent cardiac stress test. In the emergency room she has an unre markable workup of CT head, chest, abdominal and pelvis, Chem-12, troponin x2 and is referred to the hospitalist for observation. Past Medical History Cardiac Medical History: Reports: Congestive Heart Failure, Hypertension Pulmonary Medical History: Reports: Chronic Obstructive Pulmonary Disease (COPD) Neurological Medical History: Denies: Seizures GI Medical History: Reports: Gastroesophageal Reflux Disease Musculoskeltal Medical History: Reports: Arthritis - RA Psychiatric Medical History: Reports: Bipolar Disorder, Depression, Tobacco Dependency Past Surgical History Past Surgical History: Reports: Appendectomy, Cholecystectomy, Hysterectomy, Orthopedic Surgery - Rt knee and hand Social History Information Source: Patient, Emergency Med Personnel, [facility] Records Smoking Status: Current Every Day Smoker Cigarettes Packs Per Day: 1 Number of Years Smokin Last Time Smoked: 08/06/2018 Frequency of Alcohol Use: None Hx Recreational Drug Use: No - denies Drugs: None Hx Prescription Drug Abuse: - denies - Advance Directive Resuscitation Status: Full Code Family History Family History: CAD, COPD, Hypertension Parental Family History Reviewed: Yes Children Family History Reviewed: Yes Sibling(s) Family History Reviewed.: Yes Medication/Allergy Home Medications: Acetaminophen [Tylenol 325 mg Tablet] 650 mg PO Q4HP PRN tablet 03/19/16 Albuterol Sulfate [Proair HFA] 1 - 2 puff IH Q4 PRN #1 inhaler 03/19/16 Ciprofloxacin HCl [Cipro 500 mg Tablet] 500 mg PO Q12 #14 tablet 03/19/16 Docusate Sodium [Colace 100 mg Capsule] 100 mg PO BID capsule 03/19/16 Hydrocodone/Acetaminophen [Hydrocodon-Acetaminophen 5-325] 1 each PO Q6HP PRN #1 5 tablet 03/19/16 Metoprolol/Hydrochlorothiazide [Lopressor HCT 50-25 Tablet] 1 each PO BID 03/19/16 Metronidazole [Flagyl 500 mg Tablet] 500 mg PO Q8H #21 tablet 03/19/16 Paroxetine HCl [Paxil 20 mg Tablet] 40 mg PO DAILY #30 tablet 03/19/16 Clonazepam [Klonopin] 0.5 mg PO Q12HP PRN 01/26/17 Fluoxetine HCl [Prozac 20 mg Capsule] 20 mg PO DAILY 01/26/17 Hydrocodone Bit/Acetaminophen [Hydrocodon-Acetaminophen 5-325] 1 each PO Q4HP PRN 01/26/17 Hydroxyzine Pamoate [Vistaril 50 mg Capsule] 50 mg PO Q6 01/26/17 Omeprazole 20 mg PO Q12 01/26/17 Amlodipine Besylate [Norvasc 10 mg Tablet] 10 mg PO DAILY #30 tablet 01/29/17 Lisinopril [Prinivil 10 mg Tablet] 20 mg PO DAILY #30 tablet 01/29/17 Lisinopril [Zestril] 20 mg PO DAILY #30 tablet 01/29/17 Metoprolol Tartrate [Lopressor 50 mg Tablet] 50 mg PO DAILY #30 tablet 01/29/17 Sodium Chloride [Sodium Chloride 1 Gm Tablet] 1 gm PO BID #6 tablet 01/29/17 Hydrocodone/Acetaminophen [[place] 5-325 mg Tablet] 1 tab PO BID PRN #7 tablet Hydrocodone/Acetaminophen [[place] 5-325 mg Tablet] 1 tab PO Q6 #6 tablet 08/22/17 Lidocaine [Lidoderm 5% (700 mg) Transdermal Patch] 1 patch TP DAILY #30 adh..patch 09/17/17 Methocarbamol [Robaxin 500 mg Tablet] 500 mg PO QID PRN #40 tablet 09/19/17 Lidocaine/Menthol [[place] 4%-1% Patch] 1 each TP TIDP PRN #20 adh..patch 09/26/17 Methylprednisolone [Medrol Dosepack (4 mg/Tab) 21 Tab/Dosepak] 4 mg PO ASDIR PRN #21 tab.ds.pk 09/26/17 Prednisolone 5 ml PO DAILY #15 ml 09/26/17 Allergies/Adverse Reactions: tramadol HCl [From Ultram] Allergy (Mild, Verified 08/06/18 19:40) aspirin Allergy (Verified 08/06/18 19:40) diclofenac sodium [From Voltaren] Allergy (Verified 08/06/18 19:40) ketorolac [From Toradol] Allergy (Verified 08/06/18 19:40) penicillin G [Penicillin G] Allergy (Verified 08/06/18 19:40) Penicillins Allergy (Verified 08/06/18 19:40) Review of Systems ROS unobtainable: Due to mental status - Patient answers affirmatively to all questions and felt to be an unreliable historian Physical Exam Vital Signs: Temp Pulse Resp BP Pulse Ox 98.0 F 71 21 H 132/71 H 90 L 08/07/18 02:39 08/07/18 02:42 08/07/18 02:39 08/07/18 02:39 08/07/18 02:39 Intake & Output 08/05/18 08/06/18 08/07/18 11:59 11:59 11:59 Intake Total 1000 Balance 1000 Weight 56.9 kg General appearance: PRESENT: no acute distress, well-developed, well-nourished Head exam: PRESENT: atraumatic, normocephalic Eye exam: PRESENT: conjunctiva pink, EOMI, PERRLA. ABSENT: scleral icterus Ear exam: PRESENT: normal external ear exam Mouth exam: PRESENT: moist, tongue midline Neck exam: ABSENT: carotid bruit, JVD, lymphadenopathy, thyromegaly Respiratory exam: PRESENT: clear to auscultation christine. ABSENT: rales, rhonchi, wheezes Cardiovascular exam: PRESENT: RRR. ABSENT: diastolic murmur, rubs, systolic murmur Pulses: PRESENT: normal dorsalis pedis pul Vascular exam: PRESENT: normal capillary refill GI/Abdominal exam: PRESENT: normal bowel sounds, soft, tenderness - Epigastric tenderness to light touch. ABSENT: distended, guarding, mass, organolmegaly, rebound Rectal exam: PRESENT: deferred Extremities exam: PRESENT: full ROM. ABSENT: calf tenderness, clubbing, pedal edema Neurological exam: PRESENT: alert, awake, oriented to person, oriented to place, oriented to time, oriented to situation, CN II-XII grossly intact. ABSENT: motor sensory deficit Psychiatric exam: PRESENT: appropriate affect, normal mood. ABSENT: homicidal ideation, suicidal ideation Skin exam: PRESENT: dry, intact, warm. ABSENT: cyanosis, rash Results Laboratory Results: 08/06/18 20:25 08/06/18 20:25 08/06/18 08/06/18 08/06/18 20:20 20:25 20:25 WBC 7.2 RBC 4.84 Hgb 15.2 Hct 45.3 MCV 94 MCH 31.3 MCHC 33.5 RDW 16.7 H Plt Count 210 Seg Neutrophils % 46.9 Lymphocytes % 45.2 H Monocytes % 6.4 Eosinophils % 1.3 Basophils % 0.2 Absolute Neutrophils 3.4 Absolute Lymphocytes 3.2 Absolute Monocytes 0.5 Absolute Eosinophils 0.1 Absolute Basophils 0.0 Sodium 134.7 L Potassium 4.0 Chloride 98 Carbon Dioxide 27 Anion Gap 10 BUN 10 Creatinine 0.90 Est GFR ( Amer) > 60 Est GFR (Non-Af Amer) > 60 Glucose 87 Calcium 9.6 Total Bilirubin 0.4 AST 29 ALT 20 Alkaline Phosphatase 109 Total Protein 7.4 Albumin 4.5 Lipase 81.8 Urine Color STRAW Urine Appearance CLEAR Urine pH 6.0 Ur Specific [place] 1.003 Urine Protein NEGATIVE Urine Glucose (UA) NEGATIVE Urine Ketones NEGATIVE Urine Blood NEGATIVE Urine Nitrite NEGATIVE Ur Leukocyte Esterase NEGATIVE Urine WBC (Auto) 1 Urine RBC (Auto) 1 08/06/18 08/06/18 20:25 23:35 Troponin I < 0.012 < 0.012 Impressions: Abdomen/Pelvis CTA 08/06/18 20:46 IMPRESSION: Diffuse intraluminal plaque throughout the thoracic and abdominal aorta, with 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 Consider dedicated CT angiogram of the lower extremities for complete evaluation of the vasculature. 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 Consider dedicated CT angiogram of the lower extremities for complete evaluation of the vasculature. Head CT 08/06/18 20:46 IMPRESSION: No acute intracranial abnormalities. Assessment & Plan - Diagnosis (1) Atypical chest pain Is this a current diagnosis for this admission?: Yes Plan: Atypical chest pain though the patient's pain is atypical there are multiple risk factors for coronary artery disease and subsequently will observe and evaluation of acute coronary syndrome versus coronary artery disease with anginal equivalents. Cardiac monitoring blood pressure Q6 hours ,TSH, lipid profile, serial cardiac enzymes and cardiac stress test (2) Epigastric abdominal pain Is this a current diagnosis for this admission?: Yes Plan: Acute on chronic no alarm features, trial proton pump inhibitor. (3) Depression Is this a current diagnosis for this admission?: Yes Plan: Clarify and resume outpatient SSRI (4) Tobacco abuse Is this a current diagnosis for this admission?: Yes Plan: Tobacco Dependence patient received tobacco cessation counseling and offered nicotine replacement options
[2018-08-07] MEDS: PANTOPRAZOLE SODIUM 20 MG TABLET.DR PO SCH (05:59)
[2018-08-07] MEDS: LISINOPRIL 10 MG TABLET PO SCH (11:33)
[2018-08-07] MEDS: SUCRALFATE 1 GM TABLET PO SCH ×2 (11:33→18:15)
[2018-08-07] MEDS: FLUOXETINE HCL 20 MG CAPSULE PO SCH (11:34)
--- NOTE | 2018-08-07 19:33 | CONSULTATION REPORT E ---
Consultation Report NAME: ROSANNE CAVANAUGH : 1960 AGE: 58Y DATE: 08/07/2018 430 A TO: SHERIDAN DESAI M.D. FROM: PATTIE HOWARD M.D. Requesting Physician SUBJECTIVE: The patient is a pleasant 58-year-old female who has a past medical history of depression, hypertension, COPD. The patient was admitted with chest pain, epigastric pain. Three sets of cardiac enzymes were negative. She is scheduled for a stress test tomorrow morning. She is feeling better. She still has a cough. The patient had a CT scan of the abdomen and chest that was unremarkable. OBJECTIVE: GENERAL: Patient lying in bed, comfortable, not in distress. VITAL SIGNS: Blood pressure 137/47, temperature 98.2, heart rate 77, respiratory rate 19. HEENT: Head normocephalic, atraumatic. Pupils round, reactive to light and accommodation bilaterally. Extraocular movements intact. Ears: Tympanic membranes intact bilaterally. No discharge from the ears. No discharge from the nose. NECK: Supple. No increased JVD. No thyromegaly. No lymphadenopathy. CARDIOVASCULAR: Normal S1, S2. Regular rate and rhythm. No murmur, no gallop. RESPIRATORY: Lungs clear. ABDOMEN: Soft, nontender. MUSCULOSKELETAL: No edema. NEUROLOGICAL: Awake, alert. SKIN: No rash. LABORATORY DATA: White blood count 7.2, hemoglobin 15.2, hematocrit 45. Sodium 134, potassium 4.0, creatinine 0.9. ASSESSMENT: 1. Chest pain, rule out [place]. Three sets of cardiac enzymes were negative. The patient is scheduled for cardiac cath tomorrow morning. Continue lisinopril, Lipitor and aspirin. In regards to the pain, continue Carafate 1 gram p.o. b.i.d. and nitroglycerin. 2. Hypertension, controlled. He is on lisinopril. He was taking Norvasc at home. Continue Norvasc. Continue Protonix. MEDICAL NECESSITY: The patient needs to stay for a cardiac stress test tomorrow morning to rule out underlying coronary artery disease. Discontinue tomorrow morning if the stress test is normal. DICTATING PHYSICIAN: SHERIDAN DESAI M.D. [id number] PHY#: [id number] ID: [id number] JOB#: [id number] ACCT: [id number] cc:SHERIDAN DESAI M.D. >
[2018-08-08] MEDS: PANTOPRAZOLE SODIUM 20 MG TABLET.DR PO SCH (05:45)
[2018-08-08] MEDS: SUCRALFATE 1 GM TABLET PO SCH ×2 (08:48→16:45)
[2018-08-08] MEDS ORDERED: OXYCODONE-ACETAMINOPHEN 5-325 MG TABLET PO PRN (12:23)
[2018-08-08] MEDS ORDERED: OXYCODONE HCL IR 5 MG TABLET PO PRN (12:23)
[2018-08-08] MEDS: LISINOPRIL 10 MG TABLET PO SCH (12:38)
[2018-08-08] MEDS: FLUOXETINE HCL 20 MG CAPSULE PO SCH (12:38)
[2018-08-08] MEDS ORDERED: REGADENOSON INJ 0.4 MG/5 ML DISP.SYRIN IV ONE (15:39)
[2018-08-08 17:23] VITALS: BP 159/66
--- NOTE | 2018-08-09 00:44 | DRAGON STRESS TEST REPORT ---
Intravenous Lexiscan Cardiolite stress test using single photon emmision computerized tomography. Date of procedure: 08/08/2018. Ordering Provider: Dr. Chris Badlerrama. Patient's Status: In Patient. Indication: Chest pain. Coronary risk factors: Age, hypertension, tobacco abuse disorder, and family history of coronary artery disease. Resting EKG: Sinus Rhythm. Within Normal Limits. Stress EKG: No changes of ischemia. The patient had no chest pain or discomfort, and there were no arrhythmias seen. Reason for termination: Protocol. Conclusions: Normal EKG and hemodynamic response to IV Lexiscan. Nuclear data: At rest the patient was given 10.99 millicuries of technetium 99m sestamibi injected intravenously. As per protocol rest non gated SPECT images were obtained. Subsequently the patient was given intravenous Lexiscan at a dose of 0.4 mg in 5 mL intravenously, followed by flush with normal saline. Subsequently the stress dose of 33.5 millicuries of technetium 99m sestamibi was injected intravenously. As per protocol stress gated images were obtained. Nuclear interpretation: Review of images showed that all segments of the myocardium had normal perfusion at rest, and normal perfusion post stress with IV Lexiscan. All segments of the myocardium had normal motion, contraction, and thickening by gated study. T. I D. ratio was normal at 1.01. There is no transient ischemic dilatation of the left ventricle. Computer read rest, and stress left ventricular ejection fraction were 57 %, and 59 %, respectively. Conclusion: 1. There is no scintigraphic evidence of Lexiscan induced myocardial ischemia. 2. There is no scintigraphic evidence of myocardial infarction/scar. Recommendations: Aggressive risk factor modification, and treating the underlying co- morbidities. MTDD
--- NOTE | 2018-08-10 10:40 | PDOC DISCHARGE SUMMARY ---
General - Admit/Disc Date/PCP Admission Date/Primary Care Provider: 08/07/18 00:48 DON ROCHA MD Discharge Date: 08/08/18 - Discharge Diagnosis (1) Atypical chest pain Is this a current diagnosis for this admission?: Yes (2) Peripheral vascular disease Is this a current diagnosis for this admission?: Yes - Additional Information Resuscitation Status: Full Code Discharge Diet: As Tolerated Discharge Activity: Activity As Tolerated Prescriptions: Atorvastatin Calcium [Lipitor 40 mg Tablet] 40 mg PO QHS #30 tablet Clopidogrel Bisulfate [Plavix 75 mg Tablet] 75 mg PO DAILY #30 tablet Lisinopril [Prinivil 40 mg Tablet] 40 mg PO DAILY #30 tablet Pantoprazole Sodium [Protonix [address] Tablet] 40 mg PO QAM #30 tablet. Home Medications: Amlodipine Besylate [Norvasc 10 mg Tablet] 10 mg PO DAILY #30 tablet 01/29/17 Metoprolol Tartrate [Lopressor 50 mg Tablet] 50 mg PO DAILY #30 tablet 01/29/17 Albuterol Sulfate [Proair HFA] 1 puff IH Q4HP PRN 08/07/18 Nicotine [Nicotine Patch] 21 mg TD DAILY 08/07/18 Oxycodone HCl/Acetaminophen [Oxycodon-Acetaminophen 7.5-325] 1 tab PO Q8HP PRN 08/07/18 Paroxetine HCl [Paxil 20 mg Tablet] 20 mg PO DAILY 08/07/18 Atorvastatin Calcium [Lipitor 40 mg Tablet] 40 mg PO QHS #30 tablet 08/08/18 Clopidogrel Bisulfate [Plavix 75 mg Tablet] 75 mg PO DAILY #30 tablet 08/08/18 Lisinopril [Prinivil 40 mg Tablet] 40 mg PO DAILY #30 tablet 08/08/18 Pantoprazole Sodium [Protonix [address] Tablet] 40 mg PO QAM #30 tablet.dr 08/08/18 History of Present Illness History of Present Illness: Admitting hospitalist's H&P: ROSANNE CAVANAUGH is a 58 year old female with a past medical history of depression, anxiety, hypertension, COPD, chronic bronchitis, peripheral vascular disease and ongoing tobacco dependence. She presents with vague chest pain which is described as 3-4/5 intensity, both intermittent and constant as well as sharp with dull and pressure occurring with exertion and at rest, radiating to the left shoulder and arm. She is unable to identify alleviating or exacerbating factors she is unable to recall her medication regiment.. She denies recent cardiac stress test. In the emergency room she has an unremarkable workup of CT head, chest, abdominal and pelvis, Chem-12, troponin x2 and is referred to the hospitalist for observation. Hospital Course Hospital Course: ROSANNE CAVANAUGH is a 58 year old female with a past medical history of depression, anxiety, hypertension, COPD, chronic bronchitis, peripheral vascular disease and ongoing tobacco dependence who was admitted for chest pain to rule out ACS. Her EKG and troponins were negative. Stress testing was also pursued. Discussed result which was unremarkable with cardiology. She had a CTA to rule out PE upon admission and this showed significant occlusion on the left iliac and related vessels. Patient says she just saw Dr. Rocha 4 days ago and was told the same and was recommended to ff-up with him in 3 months. Recommended starting her on Clopidogrel and statin. She has allergy to aspirin. Called Dr. Rocha to discuss results again who agree with recommendations and also recommended having patient see him earlier in 1 week for possible vascular intervention. Her lisinopril was also increase to 40 mg daily to improve blood pressure control. Physical Exam Vital Signs: Temp Pulse Resp BP Pulse Ox 98.1 F 86 24 H 159/66 H 90 L 08/08/18 17:19 08/08/18 17:19 08/08/18 17:19 08/08/18 17:19 08/08/18 17:19 General appearance: PRESENT: no acute distress, well-developed, well-nourished Head exam: PRESENT: atraumatic, normocephalic Eye exam: PRESENT: conjunctiva pink, EOMI, PERRLA. ABSENT: scleral icterus Ear exam: PRESENT: normal external ear exam Mouth exam: PRESENT: moist, tongue midline Neck exam: ABSENT: carotid bruit, JVD, lymphadenopathy, thyromegaly Respiratory exam: PRESENT: clear to auscultation christine. ABSENT: rales, rhonchi, wheezes Cardiovascular exam: PRESENT: RRR. ABSENT: diastolic murmur, rubs, systolic murmur Pulses: PRESENT: normal dorsalis pedis pul Vascular exam: PRESENT: other - slightly decreased dorsalis pedis pulse on the left GI/Abdominal exam: PRESENT: normal bowel sounds, soft. ABSENT: distended, guarding, mass, organolmegaly, rebound, tenderness Rectal exam: PRESENT: deferred Extremities exam: PRESENT: full ROM. ABSENT: calf tenderness, clubbing, pedal edema Neurological exam: PRESENT: alert, awake, oriented to person, oriented to place, oriented to time, oriented to situation, CN II-XII grossly intact. 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 Consider dedicated CT angiogram of the lower extremities for complete evaluation of the vasculature. 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 Consider dedicated CT angiogram of the lower extremities for complete evaluation of the vasculature. Head CT 08/06/18 20:46 IMPRESSION: No acute intracranial abnormalities. Qualifiers - * PATIENT BEING DISCHARGED WITH ANY OF THE FOLLOWING DIAGNOSIS: No
== END 2018-08-08 17:40 | disposition home or self-care (01) ==
LOC: ER 19:34 → EH 08-07 00:48 → 4S 08-07 02:30
PROVIDERS: ADMIT Internal Medicine; ATTEND Internal Medicine
DX: R07.89 Other chest pain (principal); I73.9 Peripheral vascular disease, unspecified; F32.9 Major depressive disorder, single episode, unspecified; J44.9 Chronic obstructive pulmonary disease, unspecified; R10.13 Epigastric pain; R05 Cough; F17.210 Nicotine dependence, cigarettes, uncomplicated; I11.0 Hypertensive heart disease with heart failure; I50.9 Heart failure, unspecified; K21.9 Gastro-esophageal reflux disease without esophagitis; M06.9 Rheumatoid arthritis, unspecified; F41.9 Anxiety disorder, unspecified; Z79.899 Other long term (current) drug therapy; Z88.6 Allergy status to analgesic agent; Z90.49 Acquired absence of other specified parts of digestive tract; Z82.49 Family history of ischemic heart disease and other diseases of the circulatory system; Z98.890 Other specified postprocedural states
CPT/HCPCS: 93005; 99285; 96361; 96374; 96375; 36415 ×2; 83690; 85025; 80053; 81001; 84484 ×2; 93017; 78452; 70450; 71275; 74174; 93010; A9500; J2785; A9270 ×11; J3490 ×5; J2270; J2405; J7030; G0378

== ENCOUNTER 2019-09-26 18:58 | Emergency (ER) | payer MEDICARE, MEDICAID ==
[2019-09-26] MEDS ORDERED: OXYCODONE-ACETAMINOPHEN 5-325 MG TABLET PO ONE (19:22)
--- NOTE | 2019-09-26 19:26 | ER Document Report ---
ED Medical Screen (RME) - General Chief Complaint: Fall Injury Stated Complaint: FALL/LEFT ARM PAIN Time Seen by Provider: 09/26/19 19:21 Primary Care Provider: KANNAN FRITZ MD [Primary Care Provider] - Follow up as needed Mode of Arrival: Wheelchair Information source: Patient Notes: 59-year-old female presented to ED for complaint of fall with pain to the right wrist and right ankle. She has obvious deformity to the right wrist. Does have pain and swelling to the right ankle as well. She has been taken straight to x- ray Percocet has been ordered and she will be taken to her room. I have greeted and performed a rapid initial assessment of this patient. A comprehensive ED assessment and evaluation of the patient, analysis of test results and completion of medical decision making process will be conducted by an additional ED providers. TRAVEL OUTSIDE OF THE [place] IN LAST 30 DAYS: No - Related Data Allergies/Adverse Reactions: tramadol HCl [From Ultram] Allergy (Mild, Verified 12/03/18 14:49) aspirin Allergy (Verified 12/03/18 14:49) diclofenac sodium [From Voltaren] Allergy (Verified 12/03/18 14:49) ketorolac [From Toradol] Allergy (Verified 12/03/18 14:49) penicillin G [Penicillin G] Allergy (Verified 12/03/18 14:49) Penicillins Allergy (Verified 12/03/18 14:49) Past Medical History - Past Medical History Cardiac Medical History: Reports: Hx Congestive Heart Failure, Hx Hypertension Pulmonary Medical History: Reports: Hx COPD Neurological Medical History: Denies: Hx Seizures Renal/ Medical History: Reports: Hx Ovarian Cysts. Denies: Hx Peritoneal Dialysis GI Medical History: Reports: Hx Gastroesophageal Reflux Disease Musculoskeltal Medical History: Reports Hx Arthritis - RA Psychiatric Medical History: Reports: Hx Anxiety, Hx Bipolar Disorder, Hx Depression Past Surgical History: Reports: Hx Appendectomy, Hx Cholecystectomy, Hx Hysterectomy, Hx Orthopedic Surgery - Rt knee and hand - Immunizations Immunizations up to date: Yes Hx Diphtheria, Pertussis, Tetanus Vaccination: Yes Physical Exam - Vital signs Vitals: Temp Pulse Resp BP Pulse Ox 98.7 F 77 18 126/61 H 91 L 09/26/19 19:05 09/26/19 19:05 09/26/19 19:05 09/26/19 19:05 09/26/19 19:05 Course - Vital Signs Vital signs: Temp Pulse Resp BP Pulse Ox 98.7 F 77 18 126/61 H 91 L 09/26/19 19:05 09/26/19 19:05 09/26/19 19:05 09/26/19 19:05 09/26/19 19:05 Doctor's Discharge - Discharge Referrals: KANNAN FRITZ MD [Primary Care Provider] - Follow up as needed
--- NOTE | 2019-09-26 19:54 | RADIOLOGY REPORT (SQ) ---
EXAM DESCRIPTION: WRIST LEFT 3 VIEWS IMAGES COMPLETED DATE/TIME: 09/26/2019 7:34 pm REASON FOR STUDY: fall pain ankle and wrist obvious deformity wrist COMPARISON: None. NUMBER OF VIEWS: Three views. TECHNIQUE: AP, lateral, and oblique radiographic images acquired of the left wrist. LIMITATIONS: None. FINDINGS: MINERALIZATION: Osteopenic BONES: Acute comminuted fracture distal left radius metaphysis with minimal articular surface dorsal angulation. Fracture lines extend into the articular surface. Acute avulsion fragment off the ulnar styloid. SOFT TISSUES: Diffuse soft tissue swelling OTHER: No radiopaque foreign body IMPRESSION: Acute comminuted intra-articular fracture distal left radius metaphysis with mild dorsal angulation of the articular surface Acute ulnar styloid avulsion TECHNICAL DOCUMENTATION: JOB ID: [id number] 2010 [employer]- All Rights Reserved Reading location - IP/workstation name: [email or web address]
--- NOTE | 2019-09-26 19:55 | RADIOLOGY REPORT (SQ) ---
EXAM DESCRIPTION: FOOT RIGHT COMPLETE IMAGES COMPLETED DATE/TIME: 09/26/2019 7:34 pm REASON FOR STUDY: fall pain ankle and wrist obvious deformity wrist COMPARISON: None. NUMBER OF VIEWS: Three views. TECHNIQUE: AP, lateral and oblique radiographic images acquired of the right foot. LIMITATIONS: None. FINDINGS: MINERALIZATION: Normal. BONES: No acute fracture or dislocation. No worrisome bone lesions. JOINTS: No effusions. SOFT TISSUES: Diffuse dorsal foot and lateral ankle soft tissue swelling. No foreign body. OTHER: No other significant finding. IMPRESSION: Diffuse dorsal foot and lateral ankle soft tissue swelling. No acute displaced fracture is identified. TECHNICAL DOCUMENTATION: JOB ID: [id number] 2010 [employer]- All Rights Reserved Reading location - IP/workstation name: [email or web address]
--- NOTE | 2019-09-26 19:55 | RADIOLOGY REPORT (SQ) ---
EXAM DESCRIPTION: ANKLE RIGHT COMPLETE IMAGES COMPLETED DATE/TIME: 09/26/2019 7:34 pm REASON FOR STUDY: fall pain ankle and wrist obvious deformity wrist COMPARISON: None. NUMBER OF VIEWS: Three views. TECHNIQUE: AP, lateral, and oblique radiographic images acquired of the right ankle. LIMITATIONS: None. FINDINGS: MINERALIZATION: Normal. BONES: No acute fracture or dislocation. No worrisome bone lesions. Small plantar calcaneal spur JOINTS: No disruption of the ankle mortise. No ankle joint effusion SOFT TISSUES: Diffuse medial and lateral soft tissue swelling. No foreign body. OTHER: No other significant finding. IMPRESSION: Diffuse soft tissue swelling. No acute displaced fracture. TECHNICAL DOCUMENTATION: JOB ID: [id number] 2010 [employer]- All Rights Reserved Reading location - IP/workstation name: [email or web address]
[2019-09-26] MEDS ORDERED: ONDANSETRON 4 MG TAB.RAPDIS PO ONE (21:19)
[2019-09-26] MEDS ORDERED: HYDROMORPHONE HCL INJ/PF 2 MG/ML AMPULE IM ONE (21:19)
--- NOTE | 2019-09-26 21:21 | ER Document Report ---
ED General - General Chief Complaint: Fall Injury Stated Complaint: FALL/LEFT ARM PAIN Time Seen by Provider: 09/26/19 19:21 Primary Care Provider: KANNAN FRITZ MD [Primary Care Provider] - Follow up as needed Mode of Arrival: Wheelchair TRAVEL OUTSIDE OF THE [place] IN LAST 30 DAYS: No - HPI Notes: Patient is a 59-year-old female who presents to the emergency department for evaluation. She was evidently going to the bathroom. She states she has some balance issues, lost her balance, fell backwards on to her left outstretched hand. She complains of pain in her left ankle. She states she has intermittent swelling in her right lower extremity, this is not a new problem for her. She is been checked for blood clots in the past. She denies any pain in that area. She complains primarily of pain in her left wrist. She denies any numbness or tingling. She did not hit her head. She did not lose consciousness. She has no neck or back pain. She is right-hand dominant. - Related Data Allergies/Adverse Reactions: tramadol HCl [From Ultram] Allergy (Mild, Verified 09/26/19 19:45) aspirin Allergy (Verified 09/26/19 19:45) diclofenac sodium [From Voltaren] Allergy (Verified 09/26/19 19:45) ketorolac [From Toradol] Allergy (Verified 09/26/19 19:45) penicillin G [Penicillin G] Allergy (Verified 09/26/19 19:45) Penicillins Allergy (Verified 09/26/19 19:45) Home Medications: Atorvastatin 40 mg daily, amlodipine 10 mg daily, metoprolol tartrate 50 mg daily, Plavix 75 mg daily, lisinopril 40 mg daily, Paxil 20 mg daily, oxycodone acetaminophen 7.5/325 mg 3 times daily, pro-air HFA as needed Past Medical History - General Information source: Patient - Social History Smoking Status: Current Every Day Smoker Chew tobacco use (# tins/day): No Frequency of alcohol use: None Drug Abuse: None Family History: CAD, COPD, Hypertension Patient has homicidal ideation: No - Past Medical History Cardiac Medical History: Reports: Hx Congestive Heart Failure, Hx Hypertension Pulmonary Medical History: Reports: Hx COPD Neurological Medical History: Denies: Hx Seizures Renal/ Medical History: Reports: Hx Ovarian Cysts. Denies: Hx Peritoneal Dialysis GI Medical History: Reports: Hx Gastroesophageal Reflux Disease Musculoskeletal Medical History: Reports Hx Arthritis - RA Psychiatric Medical History: Reports: Hx Anxiety, Hx Bipolar Disorder, Hx Depression Past Surgical History: Reports: Hx Appendectomy, Hx Cholecystectomy, Hx Hysterectomy, Hx Orthopedic Surgery - Rt knee and hand - Immunizations Immunizations up to date: Yes Hx Diphtheria, Pertussis, Tetanus Vaccination: Yes Review of Systems - Review of Systems Musculoskeletal: See HPI -: Yes All other systems reviewed and negative Physical Exam - Vital signs Vitals: Temp Pulse Resp BP Pulse Ox 98.7 F 77 18 126/61 H 91 L 09/26/19 19:05 09/26/19 19:05 09/26/19 19:05 09/26/19 19:09/26/19 19:05 - Notes Notes: This is a very pleasant 59-year-old female who appears older than her stated age in a mild amount of distress secondary to pain. Head is normocephalic and atraumatic, pupils are equal round, reactive to light. Oral mucosa is moist. Heart regular rate and rhythm, lungs encrustation bilaterally. Examination of the left upper extremity is obvious deformity to the distal forearm. She is full range of motion of the shoulder and elbow, full range of motion of the fingers and thumb. She has 2+ radial pulse, capillary refill is brisk, sensation is intact. She is tender over the distal radius as well as the distal ulna. She does not have any anatomical snuffbox tenderness to palpation. Examination of the lower extremities yields 1+ pitting edema to the right lower extremity to the pretibial region. She has no posterior calf tenderness. She has no bony tenderness about the fibular head, either malleolus of the ankle, no fifth metatarsal head tenderness. Neurovascularly intact distally, dorsalis pedis pulses 2+, capillary fill is brisk, sensation is intact. Course - Re-evaluation Re-evalutation: 09/26/19 21:50 Patient presents to the emergency department for evaluation after mechanical fall in which she sustained a left wrist fracture. She is neurovascularly intact distally. She has minimal dorsal angulation. She is placed in a sugar tong splint by PCT. I did evaluate this patient during splint placement as well as following, she is neurovascularly intact. In regards to her right lower extremity, the patient has some edema, but states this is not new. She is been evaluated multiple times in the past for DVT. She has no posterior calf tenderness. I do not strongly suspect any injury to that area, and her x-rays are negative. She has no tenderness. Patient is already on a pain management contract, takes Percocet daily. She is told to take that as prescribed, will refer her onto orthopedics. She is to return to the ED with worsening or new concerning symptoms of any sort. - Vital Signs Vital signs: Temp Pulse Resp BP Pulse Ox 98.7 F 77 18 126/61 H 91 L 09/26/19 19:21 09/26/19 19:05 09/26/19 19:05 09/26/19 19:05 09/26/19 19:05 Discharge - Discharge Clinical Impression: Fracture of distal radius and ulna Qualifiers: Encounter type: initial encounter Fracture type: closed Laterality: left Qualified Code(s): S52.502A - Unspecified fracture of the lower end of left radius, initial encounter for closed fracture; S52.602A - Unspecified fracture of lower end of left ulna, initial encounter for closed fracture Condition: Stable Disposition: HOME, SELF-CARE Instructions: Fractured Radius and Ulna ([facility]) Additional Instructions: Continue to take your Percocet at home as prescribed for pain. Follow-up with our on-call orthopedic surgeon, Dr. Barragan, for further care. Keep arm elevated when possible. If you develop increased pain, numbness, or any other new or concerning symptoms, please return immediately to the emergency department for reevaluation. Referrals: KANNAN FRITZ MD [Primary Care Provider] - Follow up as needed TAMMY BARRAGAN MD [ACTIVE STAFF] - Follow up as needed
[2019-09-26 22:25] VITALS: BP 125/65
== END 2019-09-26 22:22 | disposition home or self-care (01) ==
LOC: ER 18:58
DX: S52.502A Unspecified fracture of the lower end of left radius, initial encounter for closed fracture (principal); S52.602A Unspecified fracture of lower end of left ulna, initial encounter for closed fracture; W01.0XXA Fall on same level from slipping, tripping and stumbling without subsequent striking against object, initial encounter; I50.9 Heart failure, unspecified; I11.0 Hypertensive heart disease with heart failure; J44.9 Chronic obstructive pulmonary disease, unspecified; Z88.6 Allergy status to analgesic agent; Z88.0 Allergy status to penicillin; Z90.49 Acquired absence of other specified parts of digestive tract
CPT/HCPCS: 99283; 96372; 73610; 73630; 73110; 29125; A9270 ×2; J1170; S0119

== ENCOUNTER 2019-10-13 09:58 | Day surgery (SDC) | payer MEDICARE, MEDICAID ==
[2019-10-10 11:43] LABS: ABSOLUTE BASOPHILS # (AUTO) 0.1 10^3/uL (0.0-0.2); ABSOLUTE EOSINOPHILS # (AUTO) 0.2 10^3/uL (0.0-0.6); ABSOLUTE LYMPHOCYTES (AUTO) 1.9 10^3/uL (0.5-4.7); ABSOLUTE MONOCYTES (AUTO) 0.7 10^3/uL (0.1-1.4); ABSOLUTE NEUT (AUTO) 5.4 10^3/uL (1.7-8.2); BASOPHILS % (AUTO) 0.7 % (0-2); EOSINOPHILS % (AUTO) 1.9 % (0-6); HEMATOCRIT 43.6 % (36.0-47.0); HEMOGLOBIN 14.9 g/dL (12.0-15.5); LYMPHOCYTES % (AUTO) 23.1 % (13-45); MEAN CORPUSCULAR HEMOGLOBIN 30.7 pg (27.0-33.4); MEAN CORPUSCULAR HGB CONC 34.2 g/dL (32.0-36.0); MEAN CORPUSCULAR VOLUME 90 fl (80-97); MONOCYTES % (AUTO) 8.2 % (3-13); PLATELET COUNT 241 10^3/uL (150-450); RED BLOOD COUNT 4.85 10^6/uL (3.72-5.28); RED CELL DISTRIBUTION WIDTH 18.1 % (11.5-14.0); SEGMENTED NEUTROPHILS % (AUTO) 66.1 % (42-78); TOTAL CELLS COUNTED % (AUTO) 100 %; WHITE BLOOD COUNT 8.2 10^3/uL (4.0-10.5)
--- NOTE | 2019-10-10 11:59 | RADIOLOGY REPORT (SQ) ---
EXAM DESCRIPTION: CHEST PA/LATERAL IMAGES COMPLETED DATE/TIME: 10/10/2019 11:38 am REASON FOR STUDY: PRE-OP COMPARISON: None. EXAM PARAMETERS: NUMBER OF VIEWS: two views TECHNIQUE: Digital Frontal and Lateral radiographic views of the chest acquired. RADIATION DOSE: NA LIMITATIONS: none FINDINGS: LUNGS AND PLEURA: No opacities, masses or pneumothorax. No pleural effusion. MEDIASTINUM AND HILAR STRUCTURES: No masses or contour abnormalities. HEART AND VASCULAR STRUCTURES: Heart normal size. No evidence for failure. Vascular calcifications. BONES: No acute findings. HARDWARE: None in the chest. Cholecystectomy clips. OTHER: No other significant finding. IMPRESSION: No evidence of acute cardiopulmonary process. TECHNICAL DOCUMENTATION: JOB ID: [id number] 2010 [employer]- All Rights Reserved Reading location - IP/workstation name: [email or web address]
[2019-10-10 12:11] LABS: ANION GAP 5 (5-19); BLOOD UREA NITROGEN 10 mg/dL (7-20); CARBON DIOXIDE 31 mmol/L (22-30); CHLORIDE 98 mmol/L (98-107); GLUCOSE 90 mg/dL (75-110); POTASSIUM 3.9 mmol/L (3.6-5.0)
--- NOTE | 2019-10-11 07:53 | EKG REPORT ---
SEVERITY:- NORMAL ECG - SINUS BRADYCARDIA : Confirmed by: Adelina Schroeder MD 11-Oct-2019 07:52:39
[~2019-10-13 09:58] MED LIST: CLINDAMYCIN 600 MG/D5W RTU 600 MG/50 ML RTUPB IV ONE; SUCCINYLCHOLINE CHLORIDE INJ 200 MG/10 ML VIAL ONE
[2019-10-13] MEDS ORDERED: ONDANSETRON HCL INJ/PF 4 MG/2 ML SDV ONE (10:55)
[2019-10-13] MEDS ORDERED: DEXAMETHASONE SOD PHOSPHATE INJ 4 MG/1 ML VIAL ONE (10:55)
[2019-10-13] MEDS ORDERED: FENTANYL CITRATE INJ/PF 100 MCG/2 ML AMPUL ONE (10:55)
[2019-10-13] MEDS ORDERED: PROPOFOL INJ 200 MG/20 ML VIAL IV ONE (10:56)
[2019-10-13] MEDS ORDERED: MIDAZOLAM 2 MG/2 ML INJ ONE (10:59)
[2019-10-13] MEDS: MIDAZOLAM 2 MG/2 ML INJ ONE ×2 (11:03→12:00)
[2019-10-13] MEDS ORDERED: BUPIVACAINE HCL 0.25 % INJ/PF (2.5 MG/1 ML) 30 ML VIAL ONE (11:09)
[2019-10-13] MEDS ORDERED: MORPHINE SULFATE 10 MG/ML INJ IV PRN ×2 (13:11→14:02)
[2019-10-13] MEDS ORDERED: DIPHENHYDRAMINE HCL 50 MG/ML VIAL IV PRN (13:11)
[2019-10-13] MEDS ORDERED: FENTANYL CITRATE INJ/PF 100 MCG/2 ML AMPUL IV PRN ×3 (13:11)
[2019-10-13] MEDS ORDERED: MEPERIDINE HCL/PF INJ 25 MG/1 ML DISP.SYRIN IV PRN (13:11)
[2019-10-13] MEDS ORDERED: ONDANSETRON HCL INJ/PF 4 MG/2 ML SDV IV PRN (13:11)
[2019-10-13] MEDS ORDERED: PROMETHAZINE HCL INJ 25 MG/1 ML VIAL IV PRN ×2 (13:11)
--- NOTE | 2019-10-13 13:56 | RADIOLOGY REPORT (SQ) ---
EXAM DESCRIPTION: WRIST LEFT 3 VIEWS; NO CHG FLUORO IMAGES COMPLETED DATE/TIME: 10/13/2019 1:46 pm; 10/13/2019 1:45 pm REASON FOR STUDY: PORT S52.532A COLLES' FRACTURE OF LEFT RADIUS, INIT FOR CLOS FX COMPARISON: 09/26/2019 FLUOROSCOPY TIME: 35 SECONDS SPOT images saved to PACS. TECHNIQUE: Intra-operative images acquired during surgical procedure to evaluate progress. NUMBER OF IMAGES: 3 LIMITATIONS: None. FINDINGS: Fluoroscopy was provided for intraoperative procedure. Please refer to the operative repo rt for further discussion. IMPRESSION: IMAGE(S) OBTAINED DURING PROCEDURE. COMMENT: Quality ID 145: Final reports for procedures using fluoroscopy that document radiation exp osure indices, or exposure time and number of fluorographic images (if radiation exposure indices are not available) Please consult full operative report of the attending physician for description of the procedure. TECHNICAL DOCUMENTATION: JOB ID: [id number] 2010 [employer]- All Rights Reserved Reading location - IP/workstation name: [email or web address]
--- NOTE | 2019-10-13 13:56 | RADIOLOGY REPORT (SQ) ---
EXAM DESCRIPTION: WRIST LEFT 3 VIEWS; NO CHG FLUORO IMAGES COMPLETED DATE/TIME: 10/13/2019 1:46 pm; 10/13/2019 1:45 pm REASON FOR STUDY: PORT S52.532A COLLES' FRACTURE OF LEFT RADIUS, INIT FOR CLOS FX COMPARISON: 09/26/2019 FLUOROSCOPY TIME: 35 SECONDS SPOT images saved to PACS. TECHNIQUE: Intra-operative images acquired during surgical procedure to evaluate progress. NUMBER OF IMAGES: 3 LIMITATIONS: None. FINDINGS: Fluoroscopy was provided for intraoperative procedure. Please refer to the operative repo rt for further discussion. IMPRESSION: IMAGE(S) OBTAINED DURING PROCEDURE. COMMENT: Quality ID 145: Final reports for procedures using fluoroscopy that document radiation exp osure indices, or exposure time and number of fluorographic images (if radiation exposure indices are not available) Please consult full operative report of the attending physician for description of the procedure. TECHNICAL DOCUMENTATION: JOB ID: [id number] 2010 [employer]- All Rights Reserved Reading location - IP/workstation name: [email or web address]
--- NOTE | 2019-10-13 13:59 | Operative Report ---
Operative Report DATE OF SURGERY: 10/13/19 PREOPERATIVE DIAGNOSIS: Left Extra-articular Distal Radius Fracture POSTOPERATIVE DIAGNOSIS: Same OPERATION: ORIF Left Extra-articular Distal Radius SURGEON: KEARA AGUDELO ANESTHESIA: IV-Regional COMPLICATIONS: None ESTIMATED BLOOD LOSS: Minimal PROCEDURE: Indication for above procedure: 59-year-old female who sustained a fall onto her left distal radius. Patient had radiographs at the emergency room confirming distal wrist fracture. Closed reduction was attempted which improved alignment however patient continued to have residual dorsal angular deformity and thus decision was made to proceed with operative intervention. Risk and benefits were explained patient verbalized understanding consented for surgical procedure. Procedure In Detail: Patient was seen and evaluated in the preoperative holding area. The left upper extremity was initialized and marked. Patient received 2g of Ancef IV for bacterial prophylaxis. Patient was taken back to the operative room where transferred to the operative table and placed under general anesthesia. Once they were adequately anesthetized and a nonsterile tourniquet was placed on his upper extremity. A surgical team debriefing was performed ensuring all instrumentation was available, the surgical procedure was discussed with possible concerns reviewed. The upper extremity was prepped with chlorhexidine and alcohol and draped in a sterile fashion. A timeout was done identifying correct patient, procedure and extremity everyone in attendance agree with this and verbalized no concerns.The extremity was exsanguinated the tourniquet was inflated to 250 mmHg. A longitudinal skin incision was made via a volar approach of Giovanni along the FCR tendon sheath. The FCR tendon sheath was opened and the FCR retracted ulnarly, the palmar cutaneous branch of the median nerve was identified and protected throughout the entirety of the case. The radial artery was identified and retracted radially. Blunt dissection was performed to the FPL which was carefully sweeped ulnarly. This brought me to the pronator quadratus which was elevated off of the distal radius via sharp dissection with a 15 blade to allow later repair. The fracture was then identified and a reduction maneuver was performed utilizing a [place] elevator. Acceptable reduction was then obtained and a Standard Acumed 3 hole volar distal radius plate was placed into position and fixated with a K wire distally x2. AP and lateral radiographs were then obtained demonstrating appropriate placement of the plate and acceptable reduction of the fracture. Using a reduction tenaculum I was able to bring the plate down to bone distally. After drilling distally a cortical screw was used bringing the plate further down to bone, avoiding any liftoff of the plate from the volar cortex that could cause flexor tendon irritation post-operativley. Drilling the near cortex and to but not thru the far cortex a locking screw was then placed in the remaining holes. The previous cortex screw was removed and replaced with a locking screw. Two additional screws were placed into the styloid giving further stability to the radial styloid piece. AP and lateral radius were then done confirming appropriate placement of plate with no evidence of penetration intra-articular or within the DRUJ. I then turned my attention to the proximal screws. I drilled bicortically bringing the plate down to bone with a cortex screw. The remaining 2 holes proximally were drilled bicortically placing the appropriate size cortex in the proximal most hole and a locking screw in the distal shaft hole. AP and lateral radiographs were done confirming appropriate placement of the plate and reduction of the fracture there was spiritism of radial height, radial inclination and volar tilt. No evidence of dorsal screw prominence or intra-articular penetration of the DRUJ or radioc arpal joint. The wound was copiously irrigated with normal saline. There was no evidence of DRUJ instability on examination, Negative Singleton's test, No crepitus with range of motion at the radiocarpal joint or DRUJ. The pronator quadratus was closed with interrupted 3-0 Monocryl suture. Subcutaneous tissues were closed with interrupted 4-0 Monocryl suture. The skin was closed with a running subcuticular 4-0 Monocryl suture which was reinforced with Dermabond and Steri- Strips. 20 mL of 0.5% Marcaine were injected for postoperative pain control. The tourniquet was then deflated. Was dressed with sterile 4 x 4's and patient was placed in a well-padded volar splint. Sponge counts, instrument counts and needle counts were correct. There was no intraoperative complications patient tolerated procedure well stable to PACU. Postoperative plan: Patient will be switched to a removal brace at first postoperative followup visit and begin range of motion. Patient is encouraged to start vitamin C 500 mg daily for 51 days. Will obtain radiographs at followup of the wrist.
[2019-10-13] MEDS ORDERED: OXYCODONE-ACETAMINOPHEN 5-325 MG TABLET PO PRN (14:02)
--- NOTE | 2019-10-13 14:02 | Discharge Summary ---
Discharge Summary (SDC) - Discharge Final Diagnosis: Left distal radius fracture Date of Surgery: 10/13/19 Discharge Date: 10/13/19 Condition: Good Treatment or Instructions: Schedule Follow Up w/ Dr. Margarito Hood @ [facility] to be seen in 10-14 days or as scheduled [place]: [place]: [place]: Ice and elevate Keep splint clean/dry/intact, do not remove. If your fingers become numb please unwrap the Rudi wrap but leave the splint in place, if the sensation does not return within 30 minutes please return to the emergency department. May begin finger range of motion attempting to make full fist. Please use ibuprofen (Motrin or Advil) 600-800 mg every 8 hours as needed for pain or fever DO NOT TAKE w/ TORADOL may use once TORADOL complete. You may also use acetaminophen (Tylenol) 1000 mg every 4-6 hours as needed for pain or fever. Please be aware that many medications contain acetaminophen, do not exceed a total of 1000 mg of acetaminophen every 6 hours. If ibuprofen and acetaminophen are not sufficient for your pain you may take the Percocet/[place]. Please be aware that the Percocet/[place] does contain Tylenol. Stool softener of choice when on pain medication. USE OF [id number] IBUPROFEN: Ibuprofen (Advil, Nuprin, Medipren, Motrin IB) is a medication for fever and pain control. In addition, it has anti- inflammatory effects which may be beneficial, especially in the treatment of injuries. It's best to take ibuprofen with food. Persons with ulcer disease or allergy to aspirin should notify their physician of this before taking ibuprofen. Ibuprofen can be given every four to six hours, for a total of four doses daily. Age Pain or fever dose Antiinflammatory dose 6-8 yr 200 mg (1 tab) 200 mg (1 tab) 9-11 yr 200 mg (1 tab) 200-400 mg (1-2 tab) 11-14 yr 200-400 mg (1-2 tab) 400 mg (2 tab) 15-adult 400 mg (2 tab) 600 mg (3 tab) ORAL NARCOTIC MEDICATION: You have been given a prescription for pain control. This medication is a narcotic. It's best taken with food, as nausea can result if taken on an empty stomach. Don't operate machinery or drive within six hours of taking this medication. Do not combine this medicine with alcohol, or with any medication which can cause sedation (such as cold tablets or sleeping pills) unless you get permission from the physician. Narcotics tend to cause constipation. If possible, drink plenty of fluids and eat a diet high in fiber and fruits. Please be aware that prescription narcotics also have the potential for abuse. People become addicted to these medications because of the general sense of wellbeing that they induce. This feeling along with a significant reduction in tension, anxiety, and aggression provides a stimulating seductive quality to these drugs. Once your pain is under control, we encourage you to discard your unused narcotics. Prescriptions: Oxycodone HCl [Roxicodone] 5 mg PO Q6 PRN #25 tablet PRN Reason: Referrals: KANNAN FRITZ MD [Primary Care Provider] - Respiratory Treatments at Home: Deep Breathing/Coughing, Incentive Spirometer Discharge Activity: No Driving Report the Following to Your Physician Immediately: Redness, Swelling, Warmth, Increased Soreness
[2019-10-13] MEDS: FENTANYL CITRATE INJ/PF 100 MCG/2 ML AMPUL ONE ×2 (14:05→14:10)
[2019-10-13] MEDS ORDERED: OXYCODONE-ACETAMINOPHEN 5-325 MG TABLET ONE (14:56)
[2019-10-13 19:01] VITALS: BP 127/73
== END 2019-10-13 17:46 | disposition home or self-care (01) ==
LOC: OROUT 09:58
PROVIDERS: ATTEND Orthopaedic Surgery
DX: S52.552A Other extraarticular fracture of lower end of left radius, initial encounter for closed fracture (principal); W19.XXXA Unspecified fall, initial encounter; I11.0 Hypertensive heart disease with heart failure; I50.9 Heart failure, unspecified; J43.9 Emphysema, unspecified; E78.5 Hyperlipidemia, unspecified; I25.10 Atherosclerotic heart disease of native coronary artery without angina pectoris; J45.909 Unspecified asthma, uncomplicated; F17.210 Nicotine dependence, cigarettes, uncomplicated; Z88.8 Allergy status to other drugs, medicaments and biological substances; Z88.1 Allergy status to other antibiotic agents; Z79.899 Other long term (current) drug therapy; M79.642 Pain in left hand; M25.532 Pain in left wrist; Z03.818 Encounter for observation for suspected exposure to other biological agents ruled out
CPT/HCPCS: 93005; 36415; 85025; 80048; 71046; 73110; 93010; 25607; U0003; J2250; J1100; J3010; A9270; J0330; J2405; J2704; 01830; 87635; C1713; C1769

== ENCOUNTER 2019-11-16 16:00 | Emergency (ER) | payer MEDICARE, MEDICAID ==
[2019-11-16] MEDS ORDERED: HYDROCODONE/ACETAMINOPHEN 5-325 MG TABLET PO ONE ×2 (17:00→20:32)
[2019-11-16 17:41] LABS: ABSOLUTE EOSINOPHILS # (AUTO) 0.1 10^3/uL (0.0-0.6); ABSOLUTE LYMPHOCYTES (AUTO) 2.6 10^3/uL (0.5-4.7); ABSOLUTE MONOCYTES (AUTO) 0.6 10^3/uL (0.1-1.4); ABSOLUTE NEUT (AUTO) 3.5 10^3/uL (1.7-8.2); BASOPHILS % (AUTO) 0.5 % (0-2); EOSINOPHILS % (AUTO) 1.9 % (0-6); HEMATOCRIT 42.8 % (36.0-47.0); HEMOGLOBIN 14.3 g/dL (12.0-15.5); LYMPHOCYTES % (AUTO) 37.3 % (13-45); MEAN CORPUSCULAR HEMOGLOBIN 30.8 pg (27.0-33.4); MEAN CORPUSCULAR HGB CONC 33.5 g/dL (32.0-36.0); MEAN CORPUSCULAR VOLUME 92 fl (80-97); MONOCYTES % (AUTO) 9.1 % (3-13); PLATELET COUNT 221 10^3/uL (150-450); RED BLOOD COUNT 4.64 10^6/uL (3.72-5.28); RED CELL DISTRIBUTION WIDTH 16.7 % (11.5-14.0); SEGMENTED NEUTROPHILS % (AUTO) 51.2 % (42-78); TOTAL CELLS COUNTED % (AUTO) 100 %; WHITE BLOOD COUNT 6.9 10^3/uL (4.0-10.5)
[2019-11-16 17:43] LABS: INTERNATIONAL RATION (INR) 0.89
[2019-11-16 17:51] LABS: ALKALINE PHOSPHATASE 92 U/L (38-126); ASPARTATE AMINO TRANSFERASE 21 U/L (14-36); BILIRUBIN,TOTAL 0.4 mg/dL (0.2-1.3); BLOOD UREA NITROGEN 8 mg/dL (7-20); CALCIUM 9.5 mg/dL (8.4-10.2); CARBON DIOXIDE 26 mmol/L (22-30); GLUCOSE 112 mg/dL (75-110); TOTAL PROTEIN 6.8 g/dL (6.3-8.2)
[2019-11-16 18:00] LABS: ANION GAP 5 (5-19); CHLORIDE 97 mmol/L (98-107)
--- NOTE | 2019-11-16 22:08 | RADIOLOGY REPORT (SQ) ---
EXAM DESCRIPTION: US LOWER EXTREMITY ARTERIES LIMITED/UNILATERAL/FOLLOW UP COMPLETED DATE/TME: 11/16/2019 16:56 CLINICAL HISTORY: 59 years, Female, pain COMPARISON: None. TECHNIQUE: Transverse and longitudinal sonographic images of the right lower extremity arterial system LIMITATIONS: None. FINDINGS: [id number] visible atheromatous plaque formation associated with the superficial femoral artery and minimally involving the popliteal artery. However, Doppler images show triphasic waveforms of the femoral and popliteal arteries. Biphasic and monophasic waveforms associated with the trifurcation vessels of the leg. Velocities are as follows (in peak systolic velocity): THERMO PROCESSOR: 138 cm/s Proximal SFA: 110 cm/s Mid SFA: 117 cm/s Distal SFA: 134 cm/s Popliteal artery: 68 cm/s Anterior tibial artery: 55 cm/s. Dorsalis pedis artery: 46 cm/s. Posterior tibial artery: 68 cm/s. Peroneal artery: 42 cm/s IMPRESSION: No sonographic evidence for severe stenosis. However, [id number] visible atheromatous plaque formation of the superficial femoral artery and popliteal artery. Monophasic and biphasic waveforms of the trifurcation vessels of the leg copyright 2010 [employer]- All Rights Reserved
[2019-11-16 23:21] VITALS: BP 135/70
--- NOTE | 2019-11-17 00:29 | ER Document Report ---
Entered by JP FRAUSTO SCRIBE 11/16/19 2527 Acting as scribe for:MARGRET TIERNEY IV, MD ED Extremity Problem, Lower - General Chief Complaint: Leg Swelling Stated Complaint: RIGHT LEG PAIN, SWELLING Time Seen by Provider: 11/16/19 16:55 Mode of Arrival: Ambulatory Information source: Patient Notes: This 59 year old female patient with a history of PVD presents to the ED today with complaints of swelling, redness, and pain to the RLE for the past x1 week. She reports that that her leg tends to swell after standing up for an extended period of time. She notes that she takes Percocet for chronic back pain. Denies history of DVT. TRAVEL OUTSIDE OF THE [place] IN LAST 30 DAYS: No - Related Data Allergies/Adverse Reactions: aspirin Allergy (Severe, Verified 11/16/19 16:47) abd pain diclofenac sodium [From Voltaren] Allergy (Severe, Verified 11/16/19 16:47) abd pain erythromycin base Allergy (Severe, Verified 11/16/19 16:47) abd pain ketorolac [From Toradol] Allergy (Severe, Verified 11/16/19 16:47) abd pain penicillin G [Penicillin G] Allergy (Severe, Verified 11/16/19 16:47) abd pain Penicillins Allergy (Severe, Verified 11/16/19 16:47) abd pain tramadol HCl [From Ultram] Allergy (Severe, Verified 11/16/19 16:47) abd pain Home Medications: atorvastatin, amlodipine, metoprolol, clopidogrel, lisinopril, paroxetine, percocet, proair Past Medical History - General Information source: Patient, [facility] Records - Social History Smoking Status: Current Every Day Smoker Cigarette use (# per day): Yes Chew tobacco use (# tins/day): No Smoking Education Provided: No Frequency of alcohol use: None Drug Abuse: None Family History: Reviewed & Not Pertinent, CAD, COPD, Hypertension Patient has suicidal ideation: No Patient has homicidal ideation: No - Past Medical History Cardiac Medical History: Reports: Hx Congestive Heart Failure, Hx Hypertension Pulmonary Medical History: Reports: Hx COPD - inhaler-to use am sx Neurological Medical History: Reports: Hx Seizures - 1 TIME R/T ETOH 1990 Renal/ Medical History: Reports: Hx Ovarian Cysts GI Medical History: Reports: Hx Gastroesophageal Reflux Disease Musculoskeletal Medical History: Reports Hx Arthritis - RA Psychiatric Medical History: Reports: Hx Anxiety, Hx Bipolar Disorder, Hx Depression Past Surgical History: Reports: Hx Appendectomy, Hx Cholecystectomy, Hx Hysterectomy, Hx Orthopedic Surgery - Rt knee and hand - Immunizations Immunizations up to date: Yes Hx Diphtheria, Pertussis, Tetanus Vaccination: Yes Review of Systems - Review of Systems Constitutional: No symptoms reported EENT: No symptoms reported Cardiovascular: No symptoms reported Respiratory: No symptoms reported Gastrointestinal: No symptoms reported Genitourinary: No symptoms reported Female Genitourinary: No symptoms reported Musculoskeletal: See HPI, Leg swelling, Other - RLE pain Skin: See HPI, Other - Erythema to RLE Hematologic/Lymphatic: No symptoms reported Neurological/Psychological: No symptoms reported -: Yes All other systems reviewed and negative Physical Exam - Vital signs Vitals: Temp Pulse Resp BP Pulse Ox 97.8 F 69 18 138/63 H 91 L 11/16/19 16:09 11/16/19 16:09 11/16/19 16:09 11/16/19 16:09 11/16/19 16:09 - General General appearance: Alert In distress: None - HEENT Head: Normocephalic, Atraumatic Eyes: Normal Pupils: PERRL - Respiratory Respiratory status: No respiratory distress Chest status: Nontender Breath sounds: Normal Chest palpation: Normal - Cardiovascular Rhythm: Regular Heart sounds: Normal auscultation Murmur: No Friction rub: No Gallop: None auscultated - Abdominal Inspection: Normal Distension: No distension Bowel sounds: Normal Tenderness: Nontender - Abdomen soft Organomegaly: No organomegaly - Back Back: Normal, Nontender - Extremities General upper extremity: Normal inspection General lower extremity: Edema - RLE appears swollen compared to LLE, no pitting edema appreciated, Other - Mild sporadic erythema noted to RLE - Neurological Neuro grossly intact: Yes Orientation: AAOx4 Nia Coma Scale Eye Opening: Spontaneous Nia Coma Scale Verbal: Oriented Nia Coma Scale Motor: Obeys Commands [place] Coma Scale Total: 15 - Psychological Associated symptoms: Tearful - at times, Other - Belligerent - Skin Skin irregularity: Erythema - Mild sporadic erythema noted to RLE Course - Re-evaluation Re-evalutation: 11/16/19 23:05 Results of ED MSE discussed with patient prior to discharge. All questions were answered prior to discharge. Emergency signs and symptoms, reasons to return to the emergency department discussed with patient. - Vital Signs Vital signs: Temp Pulse Resp BP Pulse Ox 97.6 F 70 17 135/70 H 90 L 11/16/19 23:20 11/16/19 23:20 11/16/19 23:20 11/16/19 23:20 11/16/19 23:20 - Laboratory Result Diagrams: 11/16/19 17:15 11/16/19 17:15 Laboratory results interpreted by me: 11/16/19 11/16/19 17:15 17:15 RDW 16.7 H Sodium 127.6 L Chloride 97 L Est GFR (MDRD) Non-Af 59 L Glucose 112 H - Diagnostic Test Radiology reviewed: Reports reviewed Discharge - Discharge Clinical Impression: Peripheral vascular disease Condition: Good Disposition: HOME, SELF-CARE Additional Instructions: Return to the Emergency Department without delay if any worse. Be certain to follow up with the referral provided to you. [facility] [address] [place], [place] [id number] HOME CARE INSTRUCTIONS & INFORMATION: Thank you for choosing us for your medical needs. We hope you're satisfied with the care you received. After you leave, you must properly care for your problem and, at the same time, observe its progress. Any condition can change. Some illnesses can change rapidly over hours or days. If your condition worsens, return to the Emergency Department or see your physician promptly. ABOUT YOUR X-RAYS AND EKG'S: If you had an EKG or X-rays taken, they have been read by the Emergency Physician. The X-rays and EKG's will also be read by a Radiologist or [employer] within 24 hours. If discrepancies are noted, you will be notified by telephone. Please be certain the ED has a correct telephone number & address where you can be reached. Also, realize that some fractures or abnormalities do not show up on initial X-rays. If your symptoms continue, see your physician. ABOUT YOUR LABORATORY TEST: If you had laboratory tests, the results have been reviewed by the Emergency Physician. Some test results (for example cultures) may not be available for several days. You will be contacted if any test result shows you need additional treatment. Please be certain the ED has a correct telephone number and address where you can be reached. ABOUT YOUR MEDICATIONS: You will receive instructions on how to take your medicine on the prescription label you receive. Additional information may be provided by the Pharmacy. If you have questions afterwards, call the ED for clarification or further instructions. Some prescribed medications may cause drowsiness. Do not perform tasks such as driving a car or operating machinery without consulting your Pharmacist. If you feel you need a refill of pain medication, your condition will need re-evaluation. Please do not call for a refill of any medication. ABOUT YOUR SIGNATURE: Signature of this document acknowledges to followin. Understanding that you received emergency treatment and that you may be released before al medical problems are known or treated. Please be certain the ED has a correct phone number & address where you can be reached. 2. Acknowledgement that you will arrange for follow-up care as recommended. 3. Authorization for the Emergency Physician to provide information to your follow-up Physician in order to maximize your care. AT ANY TIME, IF YOUR SYMPTOMS CHANGE SIGNIFICANTLY OR WORSEN OR YOU DEVELOP NEW SYMPTOMS, RETURN TO THE EMERGENCY DEPARTMENT IMMEDIATELY FOR RE-EVALUATION. OUR GOAL IS TO PROVIDE EXCELLENT MEDICAL CARE! WE HOPE THAT WE HAVE MET YOUR EXPECTATIONS DURING YOUR EMERGENCY DEPARTMENT VISIT AND THAT YOU FEEL YOU HAVE RECEIVED EXCELLENT CARE! I personally performed the services described in the documentation, reviewed and edited the documentation which was dictated to the scribe in my presence, and it accurately records my words and actions.
== END 2019-11-16 23:25 | disposition home or self-care (01) ==
LOC: ER 16:00
DX: I73.9 Peripheral vascular disease, unspecified (principal); M79.89 Other specified soft tissue disorders; M79.604 Pain in right leg; M54.9 Dorsalgia, unspecified; G89.29 Other chronic pain; Z88.8 Allergy status to other drugs, medicaments and biological substances; Z88.0 Allergy status to penicillin; F17.210 Nicotine dependence, cigarettes, uncomplicated; I11.0 Hypertensive heart disease with heart failure; I50.9 Heart failure, unspecified; J44.9 Chronic obstructive pulmonary disease, unspecified
CPT/HCPCS: 99283; 36415; 85025; 85610; 80053; 93926; A9270

== ENCOUNTER → 2020-01-22 | Outpatient (CLI) | payer MEDICARE ==
--- NOTE | 2020-01-22 13:58 | RADIOLOGY REPORT (SQ) ---
EXAM DESCRIPTION: CT CHEST WITHOUT IMAGES COMPLETED DATE/TIME: 01/22/2020 1:29 pm REASON FOR STUDY: R91.1 SOLITARY PULMONARY NODULE R91.1 SOLITARY PULMONARY NODULE COMPARISON: 08/06/2018 TECHNIQUE: CT scan performed of the chest without intravenous contrast. Images reviewed with lung, soft tissue and bone windows. Reconstructed coronal and sagittal MPR images reviewed. All images st ored on PACS. All CT scanners at this facility use dose modulation, iterative reconstruction, and/or weight based d osing when appropriate to reduce radiation dose to as low as reasonably achievable (ALARA). [facility]: Dose Right [facility]: CareDose [facility]: Dose Right [facility]: Teradose 4D [facility]: Q-go RADIATION DOSE: CT Rad equipment meets quality standard of care and radiation dose reduction techniq ues were employed. CTDIvol: 4.2 mGy. DLP: 171 mGy-cm. mGy. LIMITATIONS: No technical limitations. FINDINGS: LUNGS AND PLEURA: No focal consolidation. No pleural effusion or pneumothorax. Upper lob e predominant centrilobular and panacinar emphysema. 4 mm left upper lobe ground-glass nodule (serie s 4, image 18). Additional 4 mm right upper lobe pulmonary nodule (series 4, image 24), also stable from 08/06/2018. No additional discrete nodules or masses. HILAR AND MEDIASTINAL STRUCTURES: Stable shotty mediastinal nodes without discrete adenopathy. HEART AND VASCULAR STRUCTURES: Normal heart size. Scattered coronary atherosclerosis. No pericardia l effusion. UPPER ABDOMEN: Prior cholecystectomy. Atrophic left kidney. Aortic atherosclerosis. THYROID AND OTHER SOFT TISSUES: No masses. No adenopathy. BONES: No acute bony abnormality. No suspicious lytic or blastic osseous lesions. HARDWARE: None in the chest. OTHER: No other significant findings. IMPRESSION: 1. No evidence of acute intrathoracic findings. 2. Stable small upper lobe 4 mm pulmonary nodules. No additional follow-up required. Recommendatio ns as below. 3. Emphysematous change. COMMENT: [place] CRITERIA FOR FOLLOW-UP OF PULMONARY NODULES Incidentally detected new nodules in persons 35 or older. HIGH RISK: History of smoking or other known risk factors. <6 mm single solid nodule: LOW RISK: no routine followup. HIGH RISK: optional CT 12 mo. TECHNICAL DOCUMENTATION: JOB ID: [id number] Quality ID # [id number]: Final reports with documentation of one or more dose reduction techniques (e.g., Au tomated exposure control, adjustment of the mA and/or kV according to patient size, use of iterative reconstruction technique) 2010 [employer]- All Rights Reserved Reading location - IP/workstation name: [email or web address]
== END ==
LOC: WI 13:15
PROVIDERS: ATTEND Internal Medicine Critical Care Medicine
DX: R91.1 Solitary pulmonary nodule (principal); J43.9 Emphysema, unspecified; I11.9 Hypertensive heart disease without heart failure; M54.6 Pain in thoracic spine; E78.5 Hyperlipidemia, unspecified; R06.00 Dyspnea, unspecified; Z72.0 Tobacco use
CPT/HCPCS: 71250